=== PATIENT | male | born 1965 | race Two or more races ===

== ENCOUNTER 2017-08-06 14:52 | Observation (INO) | payer MEDICAID ==
[2017-08-06 14:56] VITALS: BMI 26.7
--- NOTE | 2017-08-06 15:41 | C.PDOC ---
History Of Present Illness 52-year-old male, presents to the emergency department with complaints of chest pain that started two hours ago. Patient states he developed pain while helping someone up at work. Pain is non radiating and persistent in nature. Denies nausea or diaphoresis. No prior Hx of similar. 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 Pain worsens with deep breaths and he also notes associated dyspnea on exertion. Denies fevers, chills, cough, nausea/vomiting. Time Seen by Provider: 08/06/17 15:15 Chief Complaint (Nursing): Chest Pain History Per: Patient History/Exam Limitations: no limitations Onset/Duration Of Symptoms: Days Current Symptoms Are (Timing): Still Present Past Medical History Reviewed: Historical Data, Nursing Documentation, Vital Signs Vital Signs: Last Vital Signs Temp 98.6 F 08/06/17 18:35 Pulse 85 08/06/17 18:35 Resp 14 08/06/17 18:35 BP 133/88 08/06/17 18:35 Pulse Ox 98 08/06/17 18:37 - Medical History PMH: Arthritis - [facility] Procedures APPLICATION OF SPLINT (02/25/02) INJECT/INFUSE NEC (10/25/06) Family History: States: No Known Family Hx - Social History Hx Alcohol Use: No Hx Substance Use: No - Immunization History Hx Tetanus Toxoid Vaccination: Yes Hx Influenza Vaccination: Yes Hx Pneumococcal Vaccination: No Review Of Systems Except As Marked, All Systems Reviewed And Found Negative. Constitutional: Negative for: Fever, Chills Cardiovascular: Negative for: Palpitations, Light Headedness Respiratory: Positive for: SOB with Excertion, Pleuritic Pain. Negative for: Shortness of Breath Gastrointestinal: Negative for: Nausea, Vomiting Musculoskeletal: Negative for: Arm Pain, Back Pain Skin: Negative for: Rash Neurological: Negative for: Weakness, Numbness, Headache, Dizziness Physical Exam - Physical Exam Appears: Non-toxic, No Acute Distress Skin: Normal Color, Warm, Dry, No Rash Head: Normacephalic Eye(s): bilateral: PERRL Nose: Normal Oral Mucosa: Moist Lips: Normal Appearing Neck: Normal ROM Chest: Symmetrical Cardiovascular: Rhythm Regular, No Murmur Respiratory: Normal Breath Sounds, No Decreased Breath Sounds, No Accessory Muscle Use Back: Normal Inspection Extremity: Normal ROM, No Deformity, No Swelling Neurological/Psych: Oriented x3, Normal Speech ED Course And Treatment - Laboratory Results Result Diagrams: 08/06/17 15:52 08/06/17 15:52 ECG: Interpreted By Me, Viewed By Me ECG Rhythm: Sinus Tachycardia ECG Interpretation: No Acute Changes Interpretation Of ECG: Non specific T wave changes. Normal intervals Rate From EC O2 Sat by Pulse Oximetry: 98 (RA) Pulse Ox Interpretation: Normal Medical Decision Making Medical Decision Making: Plan: * EKG * Bloodwork * Chest X-Ray * Aspirin * UA * Reassess and Disposition * * chest pain - discussed with pmd and will admit to tele obervation Disposition Discussed With Dr.: Oswaldo Schaefer Doctor Will See Patient In The: Hospital Counseled Patient/Family Regarding: Studies Performed, Diagnosis - Disposition Disposition: HOME/ ROUTINE Disposition Time: 16:56 Condition: FAIR - POA Core Measure Indicators: Chest Pain - Clinical Impression Clinical Impression: Chest pain - Scribe Statement The provider has reviewed the documentation as recorded by the Scribe (Jignesh Richard) All medical record entries made by the Scribe were at my direction and personally dictated by me. I have reviewed the chart and agree that the record accurately reflects my personal performance of the history, physical exam, medical decision making, and the department course for this patient. I have also personally directed, reviewed, and agree with the discharge instructions and disposition.
[2017-08-06 15:55] LABS: BASO # 0.1 K/uL (0.0-0.2); BASO % 1.4 % (0.0-2.0); EOS # 0.5 K/uL (0.0-0.7); EOS % 6.1 % (0.0-4.0); HEMOGLOBIN 11.9 g/dL (12.0-18.0); LYMPH # 2.3 K/uL (1.0-4.3); LYMPH % 30.8 % (20.0-40.0); MEAN CELL VOLUME 84.9 fL (80.0-94.0); MEAN CORPUSCULAR HEMOGLOBIN 27.9 pg (27.0-31.0); MEAN CORPUSCULAR HGB CONC 32.9 g/dL (33.0-37.0); MONO # 0.8 K/uL (0.0-0.8); MONO % 11.5 % (0.0-10.0); NEUT # 3.7 K/uL (1.8-7.0); NEUT % 50.2 % (50.0-75.0); RBC 4.27 Mil/uL (4.40-5.90); RED CELL DISTRIBUTION WIDTH 14.4 % (11.5-14.5); WHITE BLOOD COUNT 7.4 K/uL (4.8-10.8)
[2017-08-06 16:19] LABS: ALBUMIN 3.8 g/dL (3.5-5.0); ALT/SGPT 24 U/L (21-72); AST/SGOT 34 U/L (17-59); BLOOD UREA NITROGEN 8 mg/dL (9-20); CALCIUM 8.6 mg/dl (8.6-10.4); GFR AFRICAN-AMERICAN > 60; GFR NON-AFRICAN AMERICAN > 60
--- NOTE | 2017-08-06 16:22 | RAD ---
PROCEDURE: CHEST RADIOGRAPH, 1 VIEW HISTORY: chest pain COMPARISON: None available. FINDINGS: LUNGS: Clear. PLEURA: No pneumothorax or pleural fluid seen. CARDIOVASCULAR: Normal. OSSEOUS STRUCTURES: No significant abnormalities. VISUALIZED UPPER ABDOMEN: Normal. OTHER FINDINGS: None. IMPRESSION: No active disease.
[2017-08-06] MEDS: Enoxaparin 40 mg Syringe SC SCH (22:04)
[2017-08-07 02:39] LABS: CK-MB 2.96 ng/mL (0.0-3.38); TROPONIN I 0.021 ng/mL (0.00-0.120)
--- NOTE | 2017-08-07 07:33 | CP.PCM.PN ---
Subjective - Date & Time of Evaluation Date of Evaluation: 08/07/17 Time of Evaluation: 07:30 - Subjective Subjective: PGY-[address] Schaefer's service: Pt seen and examined at bedside. Nursing reports no acute events overnight. Patient reports "burning, acidic feeling" substernally that feels better since admission. He states the pain is made worse when "he touches the center of his chest." Patient admits recently started Eliquis last week for pulmonary embolism found on admission at [facility]. He admits occasional shortness of breath this AM, but denies abdominal pain, N/V, diaphoresis. 52-year-old black male, presented to the ED on 08/06/17, with complaints of chest pain that started two hours prior while he was helping someone up at work lift a heavy object. Pain is "substernal burning sensation" that is persistent in nature and worse with palpation of center chest. Denies nausea or diaphoresis. No prior Hx of similar. 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 Pain worsens with deep breaths and he also notes associated dyspnea on exertion. Denies fevers, chills, cough, nausea/vomiting. Fam hx: denies Social hx: Marijuana - 3 blunts per week; denies EtOH, tobacco use, other illicit drugs; Currently homeless - lived with mother but "they are currently fighting" Meds: Eliquis 5mg PO BID for Pulm Embolism found "last week at [facility]" Objective - Vital Signs/Intake and Output Vital Signs (last 24 hours): Temp Pulse Resp BP Pulse Ox 98.2 F 57 L 20 132/86 98 08/07/17 04:30 08/07/17 04:43 08/07/17 04:30 08/07/17 04:30 08/07/17 04:30 - Medications Medications: Current Medications Aspirin (Aspirin Chewable) 81 mg PO DAILY [facility] Clopidogrel Bisulfate (Plavix) 75 mg PO DAILY [facility] Last Admin: 08/06/17 22:04 Dose: 75 mg Enoxaparin Sodium (Lovenox) 40 mg SC DAILY [facility] Last Admin: 08/06/17 22:04 Dose: 40 mg - Labs Labs: 08/06/17 15:52 08/06/17 15:52 - Constitutional Appears: Non-toxic, No Acute Distress - Head Exam Head Exam: ATRAUMATIC, NORMAL INSPECTION - Eye Exam Eye Exam: EOMI, Normal appearance Pupil Exam: PERRL - Respiratory Exam Respiratory Exam: Chest Wall Tenderness (anterior chest at sternum), Clear to Ausculation Bilateral, NORMAL BREATHING PATTERN. absent: Rales, Rhonchi, Wheezes - Cardiovascular Exam Cardiovascular Exam: REGULAR RHYTHM, +S1, +S2 - GI/Abdominal Exam GI & Abdominal Exam: Soft, Normal Bowel Sounds. absent: Tenderness - Extremities Exam Extremities Exam: Normal Inspection. absent: Pedal Edema, Tenderness - Back Exam Back Exam: absent: CVA tenderness (L), CVA tenderness (R) - Neurological Exam Neurological Exam: Alert, Awake, Oriented x3 - Psychiatric Exam Psychiatric exam: Normal Affect, Normal Mood - Skin Skin Exam: Warm Assessment and Plan - Assessment and Plan (Free Text) Plan: Chest pain, Acute; R/o ACS Admit to telemetry Pt tender to palpation on anterior chest wall EKG (08/07/17): 102 BPM, Sinus Tachycardia, No acute ST/T wave changes Troponin negative x 3 CXR (08/07/17): NAD f/u ECHO Dr. Hopkins, mental hygiene consultant; help appreciated - f/u reccs ASA 81 mg PO Daily - ASA 325mg PO once in ED Plavix 75mg PO Daily Hx of Pulmonary Embolism Diagnosed last week, per patient, at admission at [facility] Pt reports persistent SOB Per Dr. Schaefer will repeat CT Angio today - f/u results Eliquis 5mg PO BID - patient denies missing any scheduled doses Prophylaxis Lovenox Eliquis 5mg PO BID SCDs Jim Lawrence PGY-[address] Schaefer
[2017-08-07] MEDS: Enoxaparin 40 mg Syringe SC SCH (09:46)
[2017-08-07 11:50] LABS: CK-MB 2.26 ng/mL (0.0-3.38)
--- NOTE | 2017-08-07 12:12 | CARD ---
APPROVED REPORT EKG Measurement Heart [id number] <Conclusion> Sinus tachycardia Otherwise normal ECG
--- NOTE | 2017-08-07 12:58 | CARD ---
APPROVED REPORT EXAM: Two-dimensional and M-mode echocardiogram with Doppler and color Doppler. Other Information Quality : GoodRhythm : INDICATION Chest Pain 2D DIMENSIONS IVSd1.1 (0.7-1.1cm)LVDd4.7 (3.9-5.9cm) PWd1.1 (0.7-1.1cm)LVDs3.1 (2.5-4.0cm) FS (%) 34.8 %LVEF (%)64.1 (>50%) M-Mode DIMENSIONS RVDd1.70 (2.1-3.2cm)Left Atrium (MM)3.44 (2.5-4.0cm) IVSd0.91 (0.7-1.1cm)Aortic Root3.69 (2.2-3.7cm) LVDd5.62 (4.0-5.6cm)Aortic Cusp Exc.2.44 (1.5-2.0cm) PWd0.97 (0.7-1.1cm)FS (%) 40 % LVDs3.37 (2.0-3.8cm)LVEF (%)70 (>50%) Mitral Valve MV E Nqthvbnu86.6cm/sMV A Jscizutn29.4cm/sE/A ratio1.2 TDI E/Lateral E'0.0E/Medial E'0.0 Tricuspid Valve TR Peak [id number]/sTR Peak Gr.[id number] LEFT VENTRICLE The left ventricle is normal size. There is normal left ventricular wall thickness. The left ventricular function is normal. The left ventricular ejection fraction is within the normal range. There is normal LV segmental wall motion. The left ventricular diastolic function is normal. No left ventricle thrombus noted on this study. There is no ventricular septal defect visualized. There is no left ventricular aneurysm. There is no mass noted in the left ventricle. RIGHT VENTRICLE The right ventricle is normal size. There is normal right ventricular wall thickness. The right ventricular systolic function is normal. ATRIA The left atrium size is normal. The right atrium size is normal. The interatrial septum is intact with no evidence for an atrial septal defect. AORTIC VALVE The aortic valve is normal in structure. No aortic regurgitation is present. There is no aortic valvular stenosis. There is no aortic valvular vegetation. MITRAL VALVE The mitral valve is normal in structure. There is no evidence of mitral valve prolapse. There is no mitral valve stenosis. There is no mitral valve regurgitation noted. TRICUSPID VALVE The tricuspid valve is normal in structure. There is no tricuspid valve regurgitation noted. PULMONIC VALVE The pulmonary valve is normal in structure. There is mild pulmonic valvular regurgitation. GREAT VESSELS The aortic root is normal in size. The ascending aorta is normal in size. The pulmonary artery is normal. The IVC is normal in size and collapses >50% with inspiration. PERICARDIAL EFFUSION There is no pericardial effusion. There is no pleural effusion. <Conclusion> NORMAL STUDY. LVEF IS 70%. NO WALL MOTION ABNORMALITY. MILD PULMONIC REGURGITATION.
[2017-08-07] MEDS ORDERED: Iodixanol 320 MG/ML 100 ML BOTTLE IV ONE (13:24)
--- NOTE | 2017-08-07 14:52 | CT ---
PROCEDURE: CT Chest with contrast (Pulmonary Angiogram) HISTORY: sudden sob; Hx of PE COMPARISON: None available. TECHNIQUE: Axial computed tomography images were obtained of the chest in the pulmonary arterial phase of enhancement. Coronal and sagittal reformatted images were created and reviewed. Intravenous contrast dose: 100 mL Visipaque 320 Radiation dose: Total exam DLP = 392.4 mGy-cm. This CT exam was performed using one or more of the following dose reduction techniques: Automated exposure control, adjustment of the mA and/or kV according to patient size, and/or use of iterative reconstruction technique. FINDINGS: PULMONARY ARTERIES: Segmental right lower lobe and subsegmental left upper lobe pulmonary emboli. AORTA: No acute findings. No thoracic aortic aneurysm. LUNGS: Unremarkable. No nodule, mass or pulmonary consolidation. PLEURAL SPACES: Unremarkable. No effusion or pneumothorax. HEART: Unremarkable. No cardiomegaly. No significant pericardial effusion. LYMPH NODES: No lymphadenopathy. 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 No fracture or destructive lesion OTHER FINDINGS: Unremarkable. IMPRESSION: Bilateral pulmonary emboli as described above. No CT evidence of right heart strain. Findings conveyed to LUPIS Berkowitz by Dr. Donahue at 2:49 pm on
--- NOTE | 2017-08-07 15:52 | CARD ---
APPROVED REPORT EKG Measurement Heart [id number] <Conclusion> Normal sinus rhythm Left axis deviation Abnormal ECG
--- NOTE | 2017-08-07 18:26 | CP.PCM.CON ---
History of Present Illness - History of Present Illness History of Present Illness: I was asked to evaluate patient for chest pain. Patient is a 52 year old male with PMH HTN, who was diagnosed with pulmonary embolism one week ago. The patient was started on Eliquis and discharged. The patient states he develoepd L sided chest and side pain which then radiated to the center. There was associated dyspnea. Review of Systems - Constitutional Constitutional: absent: As Per HPI, Anorexia, Chills, Daytime Sleepiness, Excessive Sweating, Fatigue, Fever, Frequent Falls, Headache, Increased Appetite , Lethargy, Malaise, Night Sweats, Snoring, Sleep Apnea, Weight Gain, Weight Loss, Weakness, Other - EENT Eyes: absent: As Per HPI, Blind Spots, Blurred Vision, Change in Vision, Decreased Night Vision, Diplopia, Discharge, Dry Eye, Exophthalmos, Floaters, Irritation, Itchy Eyes, Loss of Peripheral Vision, Pain, Photophobia, Requires Corrective Lenses, Sees Flashes, Spots in Vision, Tunnel Vision, Other Visual Disturbances, Loss of Vision, Other Nose/Mouth/Throat: absent: As Per HPI, Epistaxis, Nasal Congestion, Nasal Discharge, Nasal Obstruction, Nasal Trauma, Nose Pain, Post Nasal Drip, Sinus Pain, Sinus Pressure, Bleeding Gums, Change in Voice, Dental Pain, Dry Mouth, Dysphagia, Halitosis, Hoarsness, Lip Swelling, Mouth Lesions, Mouth Pain, Odynophagia, Sore Throat, Throat Swelling, Tongue Swelling, Facial Pain, Neck Pain, Neck Mass, Other - Cardiovascular Cardiovascular: Chest Pain - Respiratory Respiratory: Dyspnea - Gastrointestinal Gastrointestinal: absent: As Per HPI, Abdominal Pain, Belching, Bloating, Change in Bowel Habits, Change in Stool Character, Coffee Ground Emesis, Constipation, Cramping, Diarrhea, Dyspepsia, Dysphagia, Early Satiety, Excessive Flatus, Fecal Incontinence, Heartburn, Hematemesis, Hematochezia, Loose Stools, Melena, Nausea, Odynophagia, Temesmus, Vomiting, Other - Genitourinary Genitourinary: absent: As Per HPI, Change in Urinary Stream, Difficulty Urinating, Dysuria, Flank Pain, Hematuria, Pyuria, Nocturia, Urinary Incontinence, Urinary Frequency, Urinary Hesitance, Urinary Urgency, Voiding Freq/Small Amts, Freq UTI, Hx Renal/Bladder Calculi, Hx /Renal Surgery, Bladder Distension, Other - Musculoskeletal Musculoskeletal: absent: As Per HPI, Abnormal Gait, Arthralgias, Atrophy, Back Pain, Deformity, Joint Swelling, Limited Range of Motion, Loss of Height, Muscle Cramps, Muscle Weakness, Myalgias, Neck Pain, Numbness, Radiating Pain into Limb, Stiffness, Tingling, Other - Integumentary Integumentary: absent: As Per HPI, Acne, Alopecia, Bleeding Lesions, Change in Hair, Change in Nails, Change in Pigmentation, Changing Lesions, Dry Skin, Erythema, Furuncle, Hirsutism, Lesions, New Lesions, Non-Healing Lesions, Photosensitivity, Pruritus, Rash, Skin Pain, Skin Ulcer, Sores, Striae, Swelling , Unusual Bruising, Wounds, Jaundice, Other - Neurological Neurological: absent: As Per HPI, Abnormal Gait, Abnormal Hearing, Abnormal Movements, Abnormal Speech, Behavioral Changes, Burning Sensations, Confusion, Convulsions, Disequilibrium, Dizziness, Numbness, Focal Weakness, Frequent Falls , Headaches, Lack of Coordination, Loss of Vision, Memory Loss, Paresthesias, Radicular Pain, Restless Legs, Sensory Deficit, Syncope, Tingling, Tremor, Vertigo, Weakness, Other Visual Disturbances, Other - Psychiatric Psychiatric: absent: As Per HPI, Abnormal Sleep Pattern, Anhedonia, Anxiety, Auditory Hallucinations, Behavioral Changes, Change in Appetite, Change in Libido, Confusion, Depression, Difficulty Concentrating, Hallucinations, Homicidal Ideation, Hopelessness, Irritability, Memory Loss, Mood Swings, Panic Attacks, Paranoia, Suicidal Ideation, Visual Hallucinations, Tactile Hallucinations, Other - Endocrine Endocrine: absent: As Per HPI, Change in Body Appearance, Change in Libido, Cold Intolorance, Deepening of Voice, Excessive Sweating, Fatigue, Flushing, Heat Intolorance, Increase in Ring/Shoe/Hat Size, Palpitations, Polydipsia, Polyphagia, Polyuria, Other - Hematologic/Lymphatic Hematologic: absent: As Per HPI, Easy Bleeding, Easy Bruising, Lymphadenopathy, Other Past Patient History - Past Social History Smoking Status: Never Smoked - MUSCULOSKELETAL/RHEUMATOLOGICAL Hx Arthritis: Yes - PSYCHIATRIC Hx Substance Use: No - SURGICAL HISTORY Hx Surgeries: Yes Other/Comment: abdominal - ANESTHESIA Hx Anesthesia: Yes Hx Anesthesia Reactions: No Hx Malignant Hyperthermia: No Meds Allergies/Adverse Reactions: Allergies Allergy/AdvReac Type Severity Reaction Status Date / Time Penicillins Allergy Severe ANAPHYLAXIS Verified 08/06/17 14:55 - Medications Medications: Current Medications Apixaban (Eliquis) 5 mg PO BID [facility] Last Admin: 08/07/17 17:53 Dose: 5 mg Aspirin (Aspirin Chewable) 81 mg PO DAILY [facility] Last Admin: 08/07/17 09:47 Dose: 81 mg Clopidogrel Bisulfate (Plavix) 75 mg PO DAILY [facility] Last Admin: 08/07/17 09:47 Dose: 75 mg Physical Exam - Constitutional Appears: Non-toxic - Head Exam Head Exam: NORMAL INSPECTION - Eye Exam Eye Exam: Normal appearance - ENT Exam ENT Exam: Mucous Membranes Moist - Neck Exam Neck exam: Positive for: Full Rom - Respiratory Exam Respiratory Exam: NORMAL BREATHING PATTERN - Cardiovascular Exam Cardiovascular Exam: REGULAR RHYTHM - GI/Abdominal Exam GI & Abdominal Exam: Normal Bowel Sounds - Rectal Exam Rectal Exam: Deferred - Extremities Exam Extremities exam: Positive for: normal inspection - Back Exam Back exam: NORMAL INSPECTION - Neurological Exam Neurological exam: Alert, Oriented x3 - Psychiatric Exam Psychiatric exam: Normal Affect - Skin Skin Exam: Normal Color, Warm Results - Vital Signs Recent Vital Signs: Last Vital Signs Temp 98.5 F 08/07/17 15:42 Pulse 79 08/07/17 15:42 Resp 18 08/07/17 15:42 BP 144/88 08/07/17 15:42 Pulse Ox 97 08/07/17 15:42 - Labs Result Diagrams: 08/08/17 06:14 08/08/17 06:14 Labs: Laboratory Results - last 24 hr 08/07/17 08/07/17 02:09 11:11 Total Creatine Kinase 202 H 213 H CK-MB (Mass) 2.96 2.26 Troponin I 0.0210 < 0.0120 - EKG Data EKG Interpreted by: Myself EKG shows normal: Sinus rhythm Assessment & Plan (1) Pulmonary embolism Assessment and Plan: patient's symptoms are likley due to pulmonary embolism. He is otherwise hemodynamically stable. continue Eliquis. Status: Acute
--- NOTE | 2017-08-07 18:26 | CP.PCM.CON ---
History of Present Illness - History of Present Illness History of Present Illness: patient seen examined. full cosult to follow. agree with Eliquis for PE. Past Patient History - Past Social History Smoking Status: Never Smoked - MUSCULOSKELETAL/RHEUMATOLOGICAL Hx Arthritis: Yes - PSYCHIATRIC Hx Substance Use: No - SURGICAL HISTORY Hx Surgeries: Yes Other/Comment: abdominal - ANESTHESIA Hx Anesthesia: Yes Hx Anesthesia Reactions: No Hx Malignant Hyperthermia: No Meds Allergies/Adverse Reactions: Allergies Allergy/AdvReac Type Severity Reaction Status Date / Time Penicillins Allergy Severe ANAPHYLAXIS Verified 08/06/17 14:55 - Medications Medications: Current Medications Apixaban (Eliquis) 5 mg PO BID [facility] Last Admin: 08/07/17 17:53 Dose: 5 mg Aspirin (Aspirin Chewable) 81 mg PO DAILY [facility] Last Admin: 08/07/17 09:47 Dose: 81 mg Clopidogrel Bisulfate (Plavix) 75 mg PO DAILY [facility] Last Admin: 08/07/17 09:47 Dose: 75 mg Results - Vital Signs Recent Vital Signs: Last Vital Signs Temp 98.5 F 08/07/17 15:42 Pulse 79 08/07/17 15:42 Resp 18 08/07/17 15:42 BP 144/88 08/07/17 15:42 Pulse Ox 97 08/07/17 15:42 - Labs Result Diagrams: 08/06/17 15:52 08/06/17 15:52 Labs: Laboratory Results - last 24 hr 08/07/17 08/07/17 02:09 11:11 Total Creatine Kinase 202 H 213 H CK-MB (Mass) 2.96 2.26 Troponin I 0.0210 < 0.0120
[2017-08-08 00:56] VITALS: RESP 20
[2017-08-08 06:23] LABS: BASO # 0.2 K/uL (0.0-0.2); BASO % 2.8 % (0.0-2.0); EOS # 0.7 K/uL (0.0-0.7); EOS % 7.6 % (0.0-4.0); HEMOGLOBIN 13.2 g/dL (12.0-18.0); LYMPH # 2.6 K/uL (1.0-4.3); LYMPH % 28.7 % (20.0-40.0); MEAN CELL VOLUME 85.9 fL (80.0-94.0); MEAN CORPUSCULAR HEMOGLOBIN 28.2 pg (27.0-31.0); MEAN CORPUSCULAR HGB CONC 32.9 g/dL (33.0-37.0); MEAN PLATELET VOLUME 8.3 fL (7.2-11.7); MONO # 0.9 K/uL (0.0-0.8); MONO % 10.5 % (0.0-10.0); NEUT # 4.5 K/uL (1.8-7.0); NEUT % 50.4 % (50.0-75.0); NRBC % 0.1 % (0.0-2.0); RBC 4.68 Mil/uL (4.40-5.90); RED CELL DISTRIBUTION WIDTH 14.5 % (11.5-14.5); WHITE BLOOD COUNT 8.9 K/uL (4.8-10.8)
[2017-08-08 06:45] LABS: ALB/GLOB RATIO 1.1 (1.0-2.1); ALBUMIN 3.6 g/dL (3.5-5.0); BLOOD UREA NITROGEN 8 mg/dL (9-20); CALCIUM 8.8 mg/dl (8.6-10.4); GFR AFRICAN-AMERICAN > 60; GFR NON-AFRICAN AMERICAN > 60
[2017-08-08 06:47] LABS: ALT/SGPT 26 U/L (21-72); AST/SGOT 33 U/L (17-59)
[2017-08-08 08:07] VITALS: BP 132/87; PULSE 62; TEMP 98.7; O2SAT 99
[2017-08-08] MEDS ORDERED: guaiFENesin DM 200 mg-20 mg/10 ml UD PO PRN (11:00)
--- NOTE | 2017-08-08 14:44 | CP.PCM.PN ---
Subjective - Date & Time of Evaluation Date of Evaluation: 08/08/17 Time of Evaluation: 09:50 - Subjective Subjective: Medicine progress note for Dr. Schaefer's service Patient seen and examined. Patient has complaint of burning sensation with reproducible pain on sternum. He states he also has a non-productive cough. Patient was treated at [facility] last week for bilateral pulmonary emboli. Patient has medications with him from his [facility] discharge including Eliquis 5mg, atorvastatin 40mg, thiamine and folic acid. Patient is eating well and is to be evaluated by physical therapy today. Objective - Vital Signs/Intake and Output Vital Signs (last 24 hours): Temp Pulse Resp BP Pulse Ox 98.7 F 62 20 132/87 99 08/08/17 08:06 08/08/17 08:06 08/08/17 08:06 08/08/17 08:06 08/08/17 08:06 - Medications Medications: Current Medications Apixaban (Eliquis) 5 mg PO BID [facility] Last Admin: 08/08/17 09:11 Dose: 5 mg Aspirin (Aspirin Chewable) 81 mg PO DAILY [facility] Last Admin: 08/08/17 09:11 Dose: 81 mg Famotidine (Pepcid) 20 mg PO BID [facility] Guaifenesin/Dextromethorphan (Robitussin Dm) 10 ml PO Q4H PRN PRN Reason: Cough and congestion Last Admin: 08/08/17 10:46 Dose: 10 ml Rosuvastatin Calcium (Crestor) 20 mg PO HS [facility] - Labs Labs: 08/08/17 06:14 08/08/17 06:14 - Constitutional Appears: No Acute Distress - Head Exam Head Exam: ATRAUMATIC, NORMOCEPHALIC - Eye Exam Eye Exam: EOMI - ENT Exam ENT Exam: Mucous Membranes Moist - Respiratory Exam Respiratory Exam: Chest Wall Tenderness (sternum), Clear to Ausculation Bilateral, NORMAL BREATHING PATTERN. absent: Rales, Rhonchi, Wheezes - Cardiovascular Exam Cardiovascular Exam: REGULAR RHYTHM, +S1, +S2 - GI/Abdominal Exam GI & Abdominal Exam: Soft, Normal Bowel Sounds. absent: Tenderness - Extremities Exam Extremities Exam: Normal Inspection. absent: Calf Tenderness - Neurological Exam Neurological Exam: Alert, Awake, Oriented x3 - Psychiatric Exam Psychiatric exam: Normal Affect - Skin Skin Exam: Warm Assessment and Plan - Assessment and Plan (Free Text) Assessment: Chest pain, Acute; R/o ACS Monitor on telemetry Pt tender to palpation on anterior chest wall EKG (08/07/17): 102 BPM, Sinus Tachycardia, No acute ST/T wave changes Troponin negative x 3 CXR (08/07/17): NAD ECHO: Normal study. LVEF 70%. No wall motion abnormality. Mild Pulmonic Regurgitation. Dr. Hopkins, business analyst consultant; help appreciated - agree with Eliquis 5mg PO BID ASA 81 mg PO Daily stopped Plavix, restart equivalent of home med Atorvastatin Hx of Pulmonary Embolism Diagnosed last week, per patient, at admission at [facility] Pt reports persistent SOB repeat CT Angio: Bilateral Pulm Emboli. No evidence of right heart strain. continue Eliquis 5mg PO BID - patient denies missing any scheduled doses Prophylaxis Lovenox Eliquis 5mg PO BID [facility] All medical management as per Dr. Schaefer Patient is stable for discharge home per Dr. Schaefer. Patient is to resume Eliquis 5mg by mouth twice a day. Patient is to resume his vitamins as well as his Atorvastatin. Patient is to follow up with Dr. Schaefer within one week of discharge. Patient is to return to the ED if his symptoms reoccur or worsen. This was explained to the patient who understands and agrees.
--- NOTE | 2017-08-08 16:31 | CARD ---
APPROVED REPORT EKG Measurement Heart [id number] <Conclusion> Unusual P axis, possible ectopic atrial rhythm Possible Lateral infarct, age undetermined Abnormal ECG
== END 2017-08-08 16:11 | disposition home or self-care (01) ==
LOC: C.ER 14:52 → C.9E 16:56 → C.6T 18:33
PROVIDERS: ADMIT Internal Medicine Pulmonary Disease; ATTEND Internal Medicine Pulmonary Disease
DX: R07.89 Other chest pain (principal); I10 Essential (primary) hypertension; I26.99 Other pulmonary embolism without acute cor pulmonale; I37.1 Nonrheumatic pulmonary valve insufficiency; Z79.01 Long term (current) use of anticoagulants; Z86.711 Personal history of pulmonary embolism
CPT/HCPCS: 36415; 71045; 71275; 80053; 83735; 84100; 84484; 85025; 93005; 93306; 97116; 97161; 99285; G0378; G8978; G8979; J1650; Q9967

== ENCOUNTER 2018-08-15 03:52 | Inpatient (IN) | payer MEDICAID ==
[2018-08-15 03:53] VITALS: BMI 26.7
[2018-08-15] MEDS ORDERED: Iodixanol 320 mg/ml 150 ml Bottle IV ONE (04:40)
[2018-08-15 04:48] LABS: BASO # 0.1 K/uL (0.0-0.2); BASO % 0.3 % (0.0-2.0); EOS # 0.1 K/uL (0.0-0.7); EOS % 0.8 % (0.0-4.0); HEMOGLOBIN 12.7 g/dL (12.0-18.0); LYMPH # 1.8 K/uL (1.0-4.3); LYMPH % 10.5 % (20.0-40.0); MEAN CELL VOLUME 83.3 fL (80.0-94.0); MEAN CORPUSCULAR HEMOGLOBIN 27.8 pg (27.0-31.0); MEAN CORPUSCULAR HGB CONC 33.4 g/dL (33.0-37.0); MEAN PLATELET VOLUME 8.7 fL (7.2-11.7); MONO # 1.8 K/uL (0.0-0.8); MONO % 10.5 % (0.0-10.0); NEUT # 13.3 K/uL (1.8-7.0); NEUT % 77.9 % (50.0-75.0); RBC 4.55 Mil/uL (4.40-5.90); RED CELL DISTRIBUTION WIDTH 13.9 % (11.5-14.5); WHITE BLOOD COUNT 17.1 K/uL (4.8-10.8)
[2018-08-15 05:18] LABS: URINE BILIRUBIN NEGATIVE (NEGATIVE); URINE BLOOD NEGATIVE (NEGATIVE); URINE CLARITY Clear (Clear); URINE COLOR Yellow (YELLOW); URINE GLUCOSE (UA) NORMAL (Normal); URINE LEUKOCYTE ESTERASE NEG Leu/uL (Negative); URINE PROTEIN 1+ mg/dL (NEGATIVE); URINE UROBILINOGEN NORMAL mg/dL (0.2-1.0)
[2018-08-15 05:25] LABS: ALB/GLOB RATIO 1.4 (1.0-2.1); ALBUMIN 4.8 g/dL (3.5-5.0); ALT/SGPT 26 U/L (21-72); AST/SGOT 40 U/L (17-59); BLOOD UREA NITROGEN 16 mg/dL (9-20); CALCIUM 9.5 mg/dl (8.6-10.4); GFR NON-AFRICAN AMERICAN > 60; LIPASE 75 U/L (23-300)
--- NOTE | 2018-08-15 06:00 | C.PDOC ---
History Of Present Illness 53 year old male presents to the ED c/o RLQ abdominal pain associated with watery diarrhea that started at 22:30. Patient reports pain is constant, non radiating. Patient denies fever, chills, nausea, vomit, dysuria, back pain, previous history of similar symptoms. Time Seen by Provider: 08/15/18 04:07 Chief Complaint (Nursing): Abdominal Pain History Per: Patient History/Exam Limitations: no limitations Onset/Duration Of Symptoms: Hrs (22:30) Current Symptoms Are (Timing): Still Present Location Of Pain/Discomfort: Diffuse, RLQ Quality Of Discomfort: "Pain" Associated Symptoms: Diarrhea. denies: Fever, Nausea, Vomiting, Loss Of Appetite, Constipation Recent travel outside of the [place]: No Additional History Per: Patient Past Medical History Reviewed: Historical Data, Nursing Documentation, Vital Signs Vital Signs: Last Vital Signs Temp 99.4 F 08/15/18 03:59 Pulse 92 H 08/15/18 03:59 Resp 20 08/15/18 03:59 BP 120/79 08/15/18 03:59 Pulse Ox 97 08/15/18 03:59 - Medical History PMH: Arthritis Surgical History: No Surg Hx - [facility] Procedures APPLICATION OF SPLINT (02/25/02) INJECT/INFUSE NEC (10/25/06) Family History: States: Unknown Family Hx - Social History Hx Alcohol Use: Yes Hx Substance Use: Yes - Immunization History Hx Tetanus Toxoid Vaccination: Yes Hx Influenza Vaccination: Yes Hx Pneumococcal Vaccination: No Review Of Systems Constitutional: Negative for: Fever, Chills Cardiovascular: Negative for: Chest Pain Respiratory: Negative for: Shortness of Breath Gastrointestinal: Positive for: Abdominal Pain, Diarrhea. Negative for: Nausea, Vomiting Genitourinary: Negative for: Dysuria, Hematuria Skin: Negative for: Rash Neurological: Negative for: Weakness, Numbness Physical Exam - Physical Exam Appears: Non-toxic, No Acute Distress Skin: Normal Color, Warm, Dry Head: Atraumatic, Normacephalic Eye(s): bilateral: Normal Inspection Oral Mucosa: Moist Neck: Normal ROM, Supple Chest: Symmetrical Cardiovascular: Rhythm Regular Respiratory: Normal Breath Sounds, No Rales, No Rhonchi, No Wheezing Gastrointestinal/Abdominal: Soft, Tenderness (diffuse, greater on RLQ), Guarding (mild), No Rebound, Other (epigastric surgical scar) Back: No CVA Tenderness Extremity: Normal ROM, No Tenderness, No Swelling Neurological/Psych: Oriented x3, Normal Speech, Normal Cognition Gait: Steady ED Course And Treatment - Laboratory Results Result Diagrams: 08/15/18 04:38 08/15/18 04:38 Lab Results: Total Bilirubin 0.6 mg/dL (0.2-1.3) 08/15/18 04:38 AST 40 U/L (17-59) 08/15/18 04:38 ALT 26 U/L (21-72) 08/15/18 04:38 Alkaline Phosphatase 85 U/L (38-126) 08/15/18 04:38 Total Protein 8.3 g/dL (6.3-8.3) 08/15/18 04:38 Albumin 4.8 g/dL (3.5-5.0) 08/15/18 04:38 Globulin 3.5 gm/dL (2.2-3.9) 08/15/18 04:38 Albumin/Globulin Ratio 1.4 (1.0-2.1) 08/15/18 04:38 Lipase 75 U/L (23-300) 08/15/18 04:38 Urine Color Yellow (YELLOW) 08/15/18 05:11 Urine Clarity Clear (Clear) 08/15/18 05:11 Urine pH 8.0 (5.0-8.0) 08/15/18 05:11 Ur Specific [place] 1.016 (1.003-1.030) 08/15/18 05:11 Urine Protein 1+ mg/dL (NEGATIVE) H 08/15/18 05:11 Urine Glucose (UA) Normal mg/dL (Normal) 08/15/18 05:11 Urine Ketones Negative mg/dL (NEGATIVE) 08/15/18 05:11 Urine Blood Negative (NEGATIVE) 08/15/18 05:11 Urine Nitrate Negative (NEGATIVE) 08/15/18 05:11 Urine Bilirubin Negative (NEGATIVE) 08/15/18 05:11 Urine Urobilinogen Normal mg/dL (0.2-1.0) 08/15/18 05:11 Ur Leukocyte Esterase Neg Christiana/uL (Negative) 08/15/18 05:11 Urine WBC (Auto) < 1 /hpf (0-5) 08/15/18 05:11 Urine RBC (Auto) 1 /hpf (0-3) 08/15/18 05:11 ECG: Interpreted By Me, Viewed By Me (NSR 91 bpm, left axis deviation, QTc 519ms, no acute ST/T wave changes) ECG Interpretation: No Acute Changes O2 Sat by Pulse Oximetry: 97 (On RA) Pulse Ox Interpretation: Normal - CT Scan/US CT abd/pelvis Other Rad Studies (CT/US): Read By Radiologist, Radiology Report Reviewed CT/US Interpretation: CT SCAN OF THE ABDOMEN AND PELVIS WITH CONTRAST. CLINICAL HISTORY: PATIENT WITH PAIN LAST NIGHT 10PM RLQ ELEV WBC 17.1 (Hx). TECHNIQUE: Multiple axial and coronal CT images were obtained through the abdomen and pelvis after administration of intravenous contrast material. COMMENTS: Enl arged appendix measuring 1.6 cm in its largest transverse dimension. Mild enhancement of the appendix with surrounding fat stranding. Fluid-filled small bowels. Fluid-filled colon. The liver is of uniform attenuation without mass or defect. There is no intra or extrahepatic biliary ductal dilatation. The spleen is normal. The gallbladder is within normal limits. The pancreas is of normal contour and attenuation characteristics. There is no evidence of adrenal mass. Both kidneys demonstrate prompt and equal nephrograms. The kidneys are normal in size, shape and configuration. There is no evidence of renal or ureteral mass. No renal or ureteral calculi are identified. There is no hydroure ter or hydronephrosis. There is no bowel wall thickening. No evidence for small or large bowel obstruction. There is no evidence of abdominal ascites or lymphadenopathy. There is no evidence of intrinsic or extrinsic bladder mass. There is no pelvic ascites or lymphadenopathy. Images of the lung bases show no evidence of pleural or parenchymal mass. There are no pleural effusions. The bony structures are free of lytic or blastic lesions. IMPRESSION: Uncomplicated acute appendicitis without perforation or abscess formation. Reactive ileus. Thank you for your kind referral of this patient. . Electronically signed on Aug 15, 2018 6:23:01 AM EDT by: Riri Rutledge M.D., Certified by ABR, MSK, Neuroradiology Progress Note: Blood work, UA, CT scan abd/pelvis ordered and reviewed. IV KCL given for hypokalemia. IV toradol given for pain. 6:20am- CT scan shows uncomplicated acute appendicits. Discussed patient with gen surgery resident, will come and eval patient. IV Cipro and IV Flagyl ordered. Disposition - Disposition Forms: [facility] (Khmer) - Scribe Statement The provider has reviewed the documentation as recorded by the Scribe Cecilio Goldstein All medical record entries made by the Scribe were at my direction and personally dictated by me. I have reviewed the chart and agree that the record accurately reflects my personal performance of the history, physical exam, medical decision making, and the department course for this patient. I have also personally directed, reviewed, and agree with the discharge instructions and disposition.
[2018-08-15] MEDS ORDERED: Potassium Chloride 20 mEq 100 ML ONE (06:11)
[2018-08-15] MEDS ORDERED: Ciprofloxacin 400mg/200ml D5W 400 MG/200 ML BAG IV STA (06:26)
[2018-08-15] MEDS ORDERED: metroNIDAZOLE IV 500 mg/100 ml 500 MG/100 ML BAG IV STA (06:26)
[2018-08-15] MEDS ORDERED: metroNIDAZOLE IV 500 mg/100 ml 500 MG/100 ML BAG ONE (06:43)
--- NOTE | 2018-08-15 06:56 | CP.PCM.CON ---
History of Present Illness - History of Present Illness History of Present Illness: SURGERY NOTE FOR DR. CARTAGENA 53M presents with abdominal pain, that started last night. He states he has never had this kind of pain before. Pain is in the RLQ, denies nausea or vomiting, denies fevers or chills. Patient last PO intake was last evening. Patient on Eliquis for an unknown reason and last took it yesterday morning. PMH: HTN, ETOH abuse, On eliquis for unknown reason PSH: Ex-lap for unknown reason (perforation of unknown organ) Social: denies tobacco abuse, admits to alcohol abuse (drinks every day) and marijuana abuse, denies cocaine and heroin Allergies: penicillins Past Patient History - Past Social History Smoking Status: Never Smoked - MUSCULOSKELETAL/RHEUMATOLOGICAL Hx Arthritis: Yes - PSYCHIATRIC Hx Substance Use: Yes - SURGICAL HISTORY Hx Surgeries: Yes Other/Comment: abdominal - ANESTHESIA Hx Anesthesia: Yes Hx Anesthesia Reactions: No Hx Malignant Hyperthermia: No Meds Allergies/Adverse Reactions: Allergies Allergy/AdvReac Type Severity Reaction Status Date / Time Penicillins Allergy Severe ANAPHYLAXIS Verified 08/15/18 04:00 - Medications Medications: Current Medications Potassium Chloride (Potassium Chloride 20 Meq/100 Ml) 20 meq in 100 mls @ 50 mls/hr IVPB ONCE ONE Stop: 08/15/18 07:30 Last Admin: 08/15/18 06:19 Dose: 50 mls/hr Potassium Chloride (Potassium Chloride 20 Meq/100 Ml) 20 meq in 100 mls @ 50 mls/hr IVPB ONCE ONE Stop: 08/15/18 07:30 Ciprofloxacin (Cipro 400mg/200ml Dsw) 400 mg in 200 mls @ 133.333 mls/hr IV STAT STA; Protocol Stop: 08/15/18 07:55 Metronidazole (Flagyl) 500 mg in 100 mls @ 100 mls/hr IV STAT STA; Protocol Stop: 08/15/18 07:25 Potassium Chloride 40 meq/ (Sodium Chloride) 1,020 mls @ 100 mls/hr IV .[id number] LE[facility] Physical Exam - Constitutional Appears: Non-toxic, No Acute Distress - Head Exam Head Exam: ATRAUMATIC - ENT Exam ENT Exam: Mucous Membranes Moist - Respiratory Exam Respiratory Exam: Clear to Auscultation Bilateral, NORMAL BREATHING PATTERN - Cardiovascular Exam Cardiovascular Exam: REGULAR RHYTHM, +S1, +S2 - GI/Abdominal Exam GI & Abdominal Exam: Guarding, Soft, Tenderness (RLQ). absent: Distended, Firm, Rebound, Rigid - Extremities Exam Extremities exam: Negative for: pedal edema, tenderness - Neurological Exam Neurological exam: Alert, Oriented x3 - Psychiatric Exam Psychiatric exam: Normal Affect, Normal Mood - Skin Skin Exam: Dry, Intact, Normal Color, Warm Results - Vital Signs Recent Vital Signs: Last Vital Signs Temp 99.4 F 08/15/18 03:59 Pulse 90 08/15/18 06:21 Resp 16 08/15/18 06:21 BP 121/83 08/15/18 06:21 Pulse Ox 97 08/15/18 06:50 - Labs Result Diagrams: 08/15/18 04:38 08/15/18 04:38 Labs: Laboratory Results - last 24 hr 08/15/18 08/15/18 08/15/18 04:38 04:38 05:11 WBC 17.1 H D RBC 4.55 Hgb 12.7 Hct 37.9 MCV 83.3 D MCH 27.8 MCHC 33.4 RDW 13.9 Plt Count 240 MPV 8.7 Neut % (Auto) 77.9 H Lymph % (Auto) 10.5 L Pierce % (Auto) 10.5 H Eos % (Auto) 0.8 Baso % (Auto) 0.3 Neut # (Auto) 13.3 H Lymph # (Auto) 1.8 Pierce # (Auto) 1.8 H Eos # (Auto) 0.1 Baso # (Auto) 0.1 Sodium 132 Potassium 2.5 L* D Chloride 85 L Carbon Dioxide 39 H Anion Gap 11 BUN 16 Creatinine 0.9 Est GFR ( Amer) > 60 Est GFR (Non-Af Amer) > 60 Random Glucose 116 H D Calcium 9.5 Total Bilirubin 0.6 AST 40 ALT 26 Alkaline Phosphatase 85 Total Protein 8.3 Albumin 4.8 Globulin 3.5 Albumin/Globulin Ratio 1.4 Lipase 75 Urine Color Yellow Urine Clarity Clear Urine pH 8.0 Ur Specific [place] 1.016 Urine Protein 1+ H Urine Glucose (UA) Normal Urine Ketones Negative Urine Blood Negative Urine Nitrate Negative Urine Bilirubin Negative Urine Urobilinogen Normal Ur Leukocyte Esterase Neg Urine WBC (Auto) < 1 Urine RBC (Auto) 1 Assessment & Plan - Assessment and Plan (Free Text) Assessment: 53M presents with acute appendicitis Plan: NPO IVF Potassium replacements Hold blood thinners Pre-op labs Antibiotics Plan for OR today Discussed with Dr. Darrell Lares, PGY3
[2018-08-15 07:17] LABS: INR 1.2; PROTHROMBIN TIME 13.4 SECONDS (9.7-12.2)
--- NOTE | 2018-08-15 07:21 | CP.PCM.PN ---
Subjective - Date & Time of Evaluation Date of Evaluation: 08/15/18 Time of Evaluation: 07:27 - Subjective Subjective: Medicine Note for Dr. 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 Patient reports the pain is sharp, crampy, localized to the left lower part of his abdomen associated with diarrhea. This has never happened to him before. Denied any fever, chills, chest pain, shortness of breath, nausea, vomiting, or constipation. PMHx: As noted above PSHx: Ex-lap for unknown reason (perforation of unknown organ) Meds: ASA, Eliquis, BP meds will confirm meds with [facility] [phone] All: PCNs SHx: Admits to daily alcohol use (3-4 beers per day since high school), admits to marijuana use, and denied any tobacco use FHx: Unremarkable PMD: Dr. Jeevan Schaefer Objective - Vital Signs/Intake and Output Vital Signs (last 24 hours): Temp Pulse Resp BP Pulse Ox 99.4 F 90 16 121/83 97 08/15/18 03:59 08/15/18 06:21 08/15/18 06:21 08/15/18 06:21 08/15/18 06:50 - Medications Medications: Current Medications Potassium Chloride (Potassium Chloride 20 Meq/100 Ml) 20 meq in 100 mls @ 50 mls/hr IVPB ONCE ONE Stop: 08/15/18 07:30 Last Admin: 08/15/18 06:19 Dose: 50 mls/hr Potassium Chloride (Potassium Chloride 20 Meq/100 Ml) 20 meq in 100 mls @ 50 mls/hr IVPB ONCE ONE Stop: 08/15/18 07:30 Ciprofloxacin (Cipro 400mg/200ml Dsw) 400 mg in 200 mls @ 133.333 mls/hr IV STAT STA; Protocol Stop: 08/15/18 07:55 Metronidazole (Flagyl) 500 mg in 100 mls @ 100 mls/hr IV STAT STA; Protocol Stop: 08/15/18 07:25 Last Admin: 08/15/18 06:51 Dose: 100 mls/hr Potassium Chloride 40 meq/ (Sodium Chloride) 1,020 mls @ 100 mls/hr IV .[id number] LEONA - Labs Labs: 08/15/18 04:38 08/15/18 04:38 PT 13.4 SECONDS (9.7-12.2) H 08/15/18 06:53 INR 1.2 08/15/18 06:53 APTT 27 SECONDS (21-34) 08/15/18 06:53 - Constitutional Appears: No Acute Distress - Head Exam Head Exam: ATRAUMATIC, NORMAL INSPECTION, NORMOCEPHALIC - Eye Exam Eye Exam: EOMI, Normal appearance, PERRL Pupil Exam: NORMAL ACCOMODATION - ENT Exam ENT Exam: Mucous Membranes Moist - Respiratory Exam Respiratory Exam: Clear to Ausculation Bilateral, NORMAL BREATHING PATTERN. absent: Decreased Breath Sounds, Rales, Rhonchi, Wheezes - Cardiovascular Exam Cardiovascular Exam: Tachycardia, +S1, +S2 - GI/Abdominal Exam GI & Abdominal Exam: Soft, Tenderness (LLQ), Normal Bowel Sounds. absent: Distended - Extremities Exam Extremities Exam: Normal Inspection. absent: Pedal Edema, Tenderness - Neurological Exam Neurological Exam: Alert, Awake, Oriented x3 - Psychiatric Exam Psychiatric exam: Normal Affect, Normal Mood - Skin Skin Exam: Dry, Intact, Normal Color, Warm Assessment and Plan - Assessment and Plan (Free Text) Plan: Acute Appendicitis -- General Surgery consulted Dr. Ramírez Imaging: - CT Abdomen/ Pelvis: Uncomplicated acute appendicitis without perforation or abscess formation. Reactive ileus. Management: - NPO, IVF, Cipro, Flagyl (08/15/18), Florastor - Patient for OR today, 1 pm Hypokalemia - Repleted - EKG - NSR 91 bpm, left axis deviation, QTc 519ms, no acute ST/T wave changes - Will follow up BMP @ 11:30 and replete as needed Hypertension - Will confirm medications with [facility] Hx Bilateral Pulmonary Embolisms - Diagnosed 07/2017 at [facility] [place] - ASA, Eliquis 5mg PO BID for life, will resume after patient is post op Hx Alcohol Use Disorder - Educated on the risks of continued use - Spoke about cessation - Will monitor for DTs Prophylactic Measures - GI PPX: Protonix daily - DVT PPX: SCDs, VTE c/i due to surgery DW Dr. Schaefer, Angeles Salgado DO, PGY2
[2018-08-15] MEDS ORDERED: Ciprofloxacin 400mg/200ml D5W 400 MG/200 ML BAG IVPB ONE (07:55)
[2018-08-15] MEDS ORDERED: HYDROmorphone 1 mg/ml ISec IVP PRN (08:41)
--- NOTE | 2018-08-15 09:10 | CT ---
Date of service: 08/15/2018 PROCEDURE: CT Abdomen and Pelvis with contrast HISTORY: rlq pain, r/o appendicitis COMPARISON: None available. TECHNIQUE: CT scan of the abdomen and pelvis was performed after administration of intravenous contrast. Oral contrast was not administered. Coronal and sagittal reformatted images were obtained. Contrast dose: 100 mL Visipaque 320 Radiation dose: Total exam DLP = 442.3 mGy-cm. This CT exam was performed using one or more of the following dose reduction techniques: Automated exposure control, adjustment of the mA and/or kV according to patient size, and/or use of iterative reconstruction technique. FINDINGS: LOWER THORAX: The visualized lungs are clear. LIVER: Normal in size with homogeneous enhancement. No gross lesion or ductal dilatation. GALLBLADDER AND BILE DUCTS: Well distended. No calcified gallstones, wall thickening or pericholecystic fluid. PANCREAS: Normal in size with homogeneous enhancement. No gross lesion or ductal dilatation. SPLEEN: Normal in size and appearance. ADRENALS: No discrete nodule. KIDNEYS AND URETERS: Normal in size with homogeneous enhancement. No hydronephrosis. No solid mass. VASCULATURE: No aortic aneurysm. There are no aortic atherosclerotic calcifications or mural plaque present. BOWEL: Evaluation of the bowel is limited in the absence of oral contrast. The proximal small bowel loops are normal in caliber. There are fluid-filled mildly dilated mid and distal small bowel loops and fluid in the ascending and transverse colon, likely related to mild ileus. The left hemicolon is essentially decompressed. No bowel wall thickening or obstruction. APPENDIX: The appendix is distended and measures 12 mm in diameter. There is mild wall thickening and enhancement and significant inflammatory changes and fluid in the surrounding right lower quadrant fat. PERITONEUM: No free fluid. No free air. LYMPH NODES: No enlarged lymph nodes. BLADDER: Decompressed. REPRODUCTIVE: The prostate gland is normal in size. BONES: No acute fracture. Within normal limits for the patient's age. OTHER FINDINGS: None. IMPRESSION: Acute uncomplicated appendicitis. No evidence for perforation or abscess. A preliminary report was provided by [facility].
[2018-08-15] MEDS: Saccharomyces Boulardi 250 mg Cap PO SCH ×2 (10:06→17:34)
--- NOTE | 2018-08-15 10:58 | RAD ---
Date of service: 08/15/2018 PROCEDURE: CHEST RADIOGRAPH, 1 VIEW HISTORY: preop COMPARISON: 08/06/2017. FINDINGS: LUNGS: The lungs are well inflated and clear. PLEURA: No pneumothorax or pleural effusion. CARDIOVASCULAR: The heart is normal in size. No aortic atherosclerotic calcifications present. OSSEOUS STRUCTURES: Within normal limits for the patient's age. VISUALIZED UPPER ABDOMEN: Normal. OTHER FINDINGS: None. IMPRESSION: No active pulmonary disease.
[2018-08-15 11:33] LABS: BLOOD UREA NITROGEN 17 mg/dL (9-20); CALCIUM 8.7 mg/dl (8.6-10.4); GFR NON-AFRICAN AMERICAN > 60
[2018-08-15] MEDS ORDERED: Potassium Chloride 20 mEq ER Tab PO ONE (12:30)
--- NOTE | 2018-08-15 12:36 | CP.PCM.CON ---
History of Present Illness - History of Present Illness History of Present Illness: 53 year old male with a history of PE on Xarelto x 1 year, presenting with abdominal pain, found to have acute appendicitis. The patient last took Xarelto 20mg yesterday at 6AM. He denies abnormal bleeding and bruising. He is to go to the OR later today. Past medical history: PE on Xarelto Past surgical history: Exploratory laparotomy unknown reason Family history: Denies hematologic and oncologic problems Social history: Drinks alcohol daily, and smokes marijuana Allergies: Penicillins Review of systems: All remaining review of systems including HEENT, cardiovascular, respiratory, gastrointestinal, genitourinary, musculoskeletal, dermatologic, neurologic, and psychiatric are negative unless mentioned in the HPI. Past Patient History - Past Medical History & Family History Past Medical History?: Yes - Past Social History Smoking Status: Never Smoked - CARDIAC Hx Hypertension: Yes - PULMONARY Hx Pulmonary Embolism: Yes (2018) - NEUROLOGICAL Hx Neurological Disorder: No - HEENT Hx HEENT Problems: No - RENAL Hx Chronic Kidney Disease: No - ENDOCRINE/METABOLIC Hx Endocrine Disorders: No - HEMATOLOGICAL/ONCOLOGICAL Hx Blood Disorders: No - INTEGUMENTARY Hx Dermatological Problems: No - MUSCULOSKELETAL/RHEUMATOLOGICAL Hx Arthritis: Yes - GENITOURINARY/GYNECOLOGICAL Hx Genitourinary Disorders: No - PSYCHIATRIC Hx Substance Use: Yes - SURGICAL HISTORY Hx Surgeries: Yes Other/Comment: abdominal - ANESTHESIA Hx Anesthesia: Yes Hx Anesthesia Reactions: No Hx Malignant Hyperthermia: No Meds Allergies/Adverse Reactions: Allergies Allergy/AdvReac Type Severity Reaction Status Date / Time Penicillins Allergy Severe ANAPHYLAXIS Verified 08/15/18 04:00 - Medications Medications: Current Medications Hydromorphone HCl (Dilaudid) 1 mg IVP Q6 PRN PRN Reason: Pain, severe (8-10) Potassium Chloride 40 meq/ (Sodium Chloride) 1,020 mls @ 100 mls/hr IV .[id number] [facility] Last Admin: 08/15/18 08:57 Dose: 100 mls/hr Ciprofloxacin (Cipro 400mg/200ml Dsw) 400 mg in 200 mls @ 133 mls/hr IVPB Q12H [facility]; Protocol Metronidazole (Flagyl) 500 mg in 100 mls @ 100 mls/hr IVPB Q8H [facility]; Protocol Potassium Chloride (Potassium Chloride 20 Meq/100 Ml) 20 meq in 100 mls @ 50 mls/hr IVPB Q2 [facility] Stop: 08/15/18 17:59 Last Admin: 08/15/18 12:09 Dose: 50 mls/hr Morphine Sulfate (Morphine) 1 mg IVP Q6H PRN PRN Reason: Pain, moderate (4-7) Pantoprazole Sodium (Protonix Inj) 40 mg IVP DAILY [facility] Last Admin: 08/15/18 09:06 Dose: 40 mg Pneumococcal Polyvalent Vaccine (Pneumovax 23 Vaccine) 0.5 ml IM .ONCE ONE Stop: 08/16/18 10:01 Saccharomyces Boulardii (Florastor) 250 mg PO BID [facility] Last Admin: 08/15/18 10:06 Dose: Not Given Physical Exam - Head Exam Head Exam: ATRAUMATIC - Eye Exam Eye Exam: Normal appearance - ENT Exam ENT Exam: Mucous Membranes Dry - Neck Exam Neck exam: Positive for: Normal Inspection - Respiratory Exam Respiratory Exam: NORMAL BREATHING PATTERN - Cardiovascular Exam Cardiovascular Exam: +S1, +S2 - GI/Abdominal Exam GI & Abdominal Exam: Normal Bowel Sounds - Extremities Exam Extremities exam: Positive for: normal inspection - Neurological Exam Neurological exam: Oriented x3 - Psychiatric Exam Psychiatric exam: Normal Affect, Normal Mood - Skin Skin Exam: Warm Results - Vital Signs Recent Vital Signs: Last Vital Signs Temp 99.6 F 08/15/18 12:20 Pulse 91 H 08/15/18 12:20 Resp 20 08/15/18 12:20 BP 128/78 08/15/18 12:20 Pulse Ox 100 08/15/18 12:20 - Labs Result Diagrams: 08/17/18 07:22 08/17/18 07:22 Labs: Laboratory Results - last 24 hr 08/15/18 08/15/18 08/15/18 04:38 04:38 05:11 WBC 17.1 H D RBC 4.55 Hgb 12.7 Hct 37.9 MCV 83.3 D MCH 27.8 MCHC 33.4 RDW 13.9 Plt Count 240 MPV 8.7 Neut % (Auto) 77.9 H Lymph % (Auto) 10.5 L [place] % (Auto) 10.5 H Eos % (Auto) 0.8 Baso % (Auto) 0.3 Neut # (Auto) 13.3 H Lymph # (Auto) 1.8 [place] # (Auto) 1.8 H Eos # (Auto) 0.1 Baso # (Auto) 0.1 PT INR APTT Sodium 132 Potassium 2.5 L* D Chloride 85 L Carbon Dioxide 39 H Anion Gap 11 BUN 16 Creatinine 0.9 Est GFR ( Amer) > 60 Est GFR (Non-Af Amer) > 60 Random Glucose 116 H D Calcium 9.5 Phosphorus Magnesium Total Bilirubin 0.6 AST 40 ALT 26 Alkaline Phosphatase 85 Total Protein 8.3 Albumin 4.8 Globulin 3.5 Albumin/Globulin Ratio 1.4 Lipase 75 Urine Color Yellow Urine Clarity Clear Urine pH 8.0 Ur Specific [place] 1.016 Urine Protein 1+ H Urine Glucose (UA) Normal Urine Ketones Negative Urine Blood Negative Urine Nitrate Negative Urine Bilirubin Negative Urine Urobilinogen Normal Ur Leukocyte Esterase Neg Urine WBC (Auto) < 1 Urine RBC (Auto) 1 Blood Type Antibody Screen 08/15/18 08/15/18 08/15/18 06:41 06:53 06:53 WBC RBC Hgb Hct MCV MCH MCHC RDW Plt Count MPV Neut % (Auto) Lymph % (Auto) [place] % (Auto) Eos % (Auto) Baso % (Auto) Neut # (Auto) Lymph # (Auto) [place] # (Auto) Eos # (Auto) Baso # (Auto) PT 13.4 H INR 1.2 APTT 27 Sodium Potassium Chloride Carbon Dioxide Anion Gap BUN Creatinine Est GFR ( Amer) Est GFR (Non-Af Amer) Random Glucose Calcium Phosphorus 2.6 Magnesium 2.2 Total Bilirubin AST ALT Alkaline Phosphatase Total Protein Albumin Globulin Albumin/Globulin Ratio Lipase Urine Color Urine Clarity Urine pH Ur Specific [place] Urine Protein Urine Glucose (UA) Urine Ketones Urine Blood Urine Nitrate Urine Bilirubin Urine Urobilinogen Ur Leukocyte Esterase Urine WBC (Auto) Urine RBC (Auto) Blood Type O POSITIVE Antibody Screen Negative 08/15/18 11:06 WBC RBC Hgb Hct MCV MCH MCHC RDW Plt Count MPV Neut % (Auto) Lymph % (Auto) [place] % (Auto) Eos % (Auto) Baso % (Auto) Neut # (Auto) Lymph # (Auto) [place] # (Auto) Eos # (Auto) Baso # (Auto) PT INR APTT Sodium 132 Potassium 2.7 L Chloride 90 L Carbon Dioxide 35 H Anion Gap 10 BUN 17 Creatinine 0.9 Est GFR ( Amer) > 60 Est GFR (Non-Af Amer) > 60 Random Glucose 96 Calcium 8.7 Phosphorus Magnesium Total Bilirubin AST ALT Alkaline Phosphatase Total Protein Albumin Globulin Albumin/Globulin Ratio Lipase Urine Color Urine Clarity Urine pH Ur Specific [place] Urine Protein Urine Glucose (UA) Urine Ketones Urine Blood Urine Nitrate Urine Bilirubin Urine Urobilinogen Ur Leukocyte Esterase Urine WBC (Auto) Urine RBC (Auto) Blood Type Antibody Screen Assessment & Plan (1) Preoperative clearance Assessment and Plan: Xarelto is recommended to be held 3 days prior to surgery he is high risk for bleeding if surgery is performed prior to this if possible, recommend postponement of surgery weighing the risks and benefits of possible appendix rupture I have spoken to pharmacy and they are unable to obtain an antidote (andexxa) and prothrombin complex until tomorrow discussed with PMD, surgeon, and anesthesia Status: Acute (2) Leukocytosis Assessment and Plan: secondary to appendicitis antbiotics surgery Status: Acute (3) Anemia Assessment and Plan: chronic disease retic count, b12, folate, ferritin to further characterize Status: Acute (4) History of pulmonary embolism Assessment and Plan: on anticoagulation held for surgery Thank you for this interesting consult. Status: Acute
[2018-08-15 14:34] LABS: BLOOD UREA NITROGEN 17 mg/dL (9-20); CALCIUM 8.5 mg/dl (8.6-10.4); GFR NON-AFRICAN AMERICAN > 60
[2018-08-15] MEDS ORDERED: Propofol 10 mg/ml Inj (20 ML) ONE ×2 (15:17→16:09)
[2018-08-15] MEDS ORDERED: Midazolam 2 MG/2 ML VIAL ONE (15:17)
[2018-08-15] MEDS ORDERED: Rocuronium 10 mg/ml (5 ml) ONE (15:29)
[2018-08-15] MEDS ORDERED: Lidocaine Hydrochloride 5 ML INJ ONE (15:29)
[2018-08-15] MEDS ORDERED: Neostigmine 1:1000 (1 mg/ml) Inj ONE (16:39)
--- NOTE | 2018-08-15 17:07 | PCM.SURG1 ---
Surgeon's Initial Post Op Note - Surgeon's Notes Surgeon: MD Darrell Boil Off Machine Operator Cloth: Luda,PGY3 Pre-Operative Diagnosis: Acute appendicitis Operative Findings: inflammed appendix, midline adhesions with bowel Post-Operative Diagnosis: Acute appendicitis Operation Performed: Laparoscopic appendectomy, lysis of adhesions Specimen/Specimens Removed: appendix Estimated Blood Loss: EBL {In ML}: 10 Date of Surgery/Procedure: 08/15/18 Time of Surgery/Procedure: 16:00
[2018-08-15] MEDS: metroNIDAZOLE IV 500 mg/100 ml 500 MG/100 ML BAG IVPB SCH ×2 (17:33→22:34)
[2018-08-15] MEDS: HYDROmorphone 0.5 mg/0.5 ml ISec IVP PRN ×2 (17:35→17:50)
[2018-08-15] MEDS: Ciprofloxacin 400mg/200ml D5W 400 MG/200 ML BAG IVPB SCH (20:55)
[2018-08-16] MEDS: metroNIDAZOLE IV 500 mg/100 ml 500 MG/100 ML BAG IVPB SCH ×3 (06:18→22:08)
[2018-08-16] MEDS: Ciprofloxacin 400mg/200ml D5W 400 MG/200 ML BAG IVPB SCH ×2 (06:18→18:39)
--- NOTE | 2018-08-16 08:40 | CP.PCM.PN ---
Subjective - Date & Time of Evaluation Date of Evaluation: 08/16/18 Time of Evaluation: 07:30 - Subjective Subjective: General Surgery Note for Dr. Ramírez Patient seen and examined at bedside. No acute event overnight. Patient reports mild pain but states controlled with medication. Denies fever/chills or nausea/vomiting. He is tolerating diet. He denies flatus or BM. He has no difficulty urinating. Potassium remains slightly low. Objective - Vital Signs/Intake and Output Vital Signs (last 24 hours): Temp Pulse Resp BP Pulse Ox 98.5 F 75 16 120/74 95 08/16/18 05:00 08/16/18 05:00 08/16/18 05:00 08/16/18 05:00 08/16/18 05:00 Intake and Output: 08/16/18 08/16/18 06:59 18:59 Intake Total 420 Output Total 800 Balance -380 - Medications Medications: Current Medications Acetaminophen (Tylenol 325mg Tab) 650 mg PO Q6 PRN PRN Reason: Fever >100.4 F Furosemide (Lasix) 20 mg PO DAILY [facility] Hydromorphone HCl (Dilaudid) 1 mg IVP Q6 PRN PRN Reason: Pain, severe (8-10) Potassium Chloride 40 meq/ (Sodium Chloride) 1,020 mls @ 100 mls/hr IV .[id number] [facility] Last Admin: 08/16/18 03:02 Dose: 100 mls/hr Ciprofloxacin (Cipro 400mg/200ml Dsw) 400 mg in 200 mls @ 133 mls/hr IVPB Q12H [facility]; Protocol Last Admin: 08/16/18 06:18 Dose: 133 mls/hr Metronidazole (Flagyl) 500 mg in 100 mls @ 100 mls/hr IVPB Q8H [facility]; Protocol Last Admin: 08/16/18 06:18 Dose: 100 mls/hr Metolazone (Zaroxolyn) 10 mg PO DAILY [facility] Nifedipine (Procardia Xl) 90 mg PO DAILY [facility] Pantoprazole Sodium (Protonix Inj) 40 mg IVP DAILY [facility] Last Admin: 08/15/18 09:06 Dose: 40 mg Pneumococcal Polyvalent Vaccine (Pneumovax 23 Vaccine) 0.5 ml IM .ONCE ONE Stop: 08/16/18 10:01 Potassium Chloride (K-Dur 20 Meq Er Tab) 20 meq PO DAILY [facility] Saccharomyces Boulardii (Florastor) 250 mg PO BID [facility] Last Admin: 08/15/18 17:34 Dose: Not Given Tramadol HCl (Ultram) 50 mg PO TID PRN PRN Reason: Pain, moderate (4-7) Last Admin: 08/16/18 03:00 Dose: 50 mg - Labs Labs: 08/15/18 04:38 08/15/18 14:13 PT 13.4 SECONDS (9.7-12.2) H 08/15/18 06:53 INR 1.2 08/15/18 06:53 APTT 27 SECONDS (21-34) 08/15/18 06:53 - Constitutional Appears: Non-toxic, No Acute Distress - Head Exam Head Exam: ATRAUMATIC, NORMOCEPHALIC - Eye Exam Eye Exam: EOMI, Normal appearance Pupil Exam: PERRL - ENT Exam ENT Exam: Mucous Membranes Moist - Respiratory Exam Respiratory Exam: NORMAL BREATHING PATTERN - Cardiovascular Exam Cardiovascular Exam: REGULAR RHYTHM - GI/Abdominal Exam GI & Abdominal Exam: Soft, Tenderness (surgical sites), Normal Bowel Sounds. absent: Distended, Firm, Guarding, Rigid, Rebound - Extremities Exam Extremities Exam: Normal Capillary Refill - Back Exam Back Exam: absent: CVA tenderness (L), CVA tenderness (R) - Neurological Exam Neurological Exam: Alert, Awake, Oriented x3 - Psychiatric Exam Psychiatric exam: Normal Affect, Normal Mood - Skin Skin Exam: Dry, Intact, Normal Color, Warm Assessment and Plan - Assessment and Plan (Free Text) Assessment: 53 M s/p lap appendectomy POD#1 Plan: -Regular diet -Pain control -Repleting potassium and phosphorus -Patient may shower -Encourage OOB/Ambulation/IS -Discussed with Dr. Darrell Richards PGY2
[2018-08-16 09:11] LABS: HEMOGLOBIN 11.7 g/dL (12.0-18.0); MEAN CORPUSCULAR HEMOGLOBIN 28.1 pg (27.0-31.0); MEAN CORPUSCULAR HGB CONC 32.9 g/dL (33.0-37.0); MEAN PLATELET VOLUME 8.3 fL (7.2-11.7); RBC 4.17 Mil/uL (4.40-5.90); RED CELL DISTRIBUTION WIDTH 14.1 % (11.5-14.5); WHITE BLOOD COUNT 14.4 K/uL (4.8-10.8)
[2018-08-16 09:24] LABS: MEAN CELL VOLUME 85.3 fL (80.0-94.0)
[2018-08-16] MEDS: Saccharomyces Boulardi 250 mg Cap PO SCH ×2 (09:44→18:06)
[2018-08-16] MEDS ORDERED: Pneumococcal 23-Valent Vaccine IM ONE (10:00)
[2018-08-16 10:01] LABS: BLOOD UREA NITROGEN 10 mg/dL (9-20); CALCIUM 8.8 mg/dl (8.6-10.4); GFR NON-AFRICAN AMERICAN > 60
[2018-08-16] MEDS: NIFEdipine 90 mg ER Tab PO SCH (10:04)
[2018-08-16] MEDS: metOLazone 5 MG TAB PO SCH (10:04)
[2018-08-16] MEDS ORDERED: Potassium Phosphate 30 MMOLE in Sodium Chloride 0.9% 250 ML IV ONE (10:32)
[2018-08-16] MEDS ORDERED: Potassium Chloride 20 mEq/15 ml LIQ UD PO SCH ×2 (10:45→14:15)
[2018-08-16] MEDS: Potassium Chloride 20 mEq ER Tab PO SCH ×2 (11:36→22:38)
[2018-08-16] MEDS: Potassium Chloride 20 mEq/15 ml LIQ UD PO ONE ×2 (14:21→14:28)
--- NOTE | 2018-08-16 16:30 | OP ---
PROCEDURE DATE: 08/15/2018 PREOPERATIVE DIAGNOSIS: Acute appendicitis. POSTOPERATIVE DIAGNOSIS: Acute appendicitis. SURGEON: Carlos Ramírez MD AREA MANAGER: Saorj Lares DO, PGY-3 OPERATION PERFORMED: Laparoscopic appendectomy with extensive lysis of adhesions. ANESTHESIOLOGIST: Barrington Moss MD ANESTHESIA: General. ESTIMATED BLOOD LOSS: 10 mL. DESCRIPTION OF OPERATION: Upon sedation and intubation, the patient was placed on a supine position and abdomen was prepped and draped in the usual sterile fashion. With the patient's past surgical history of exploratory laparotomy and apparent midline incision, decision was made to enter the abdomen using a Visiport on the left mid abdomen. The abdomen was entered under direct visualization until intraabdominal space was reached. Camera was used to assess the intraabdominal space at the side of the entry to make sure that no injury was achieved on entering. It was noted that entry point was safe with no injury, but it was also noted that there was extensive adhesions in the midline of the abdomen. Contents of the adhesions included omentum, which was stuck from the midline and also bowel, which was also stuck on the midline. Two more trocars were placed in the LLQ and suprapubic region measuring 12 and 5mm each. Laparoscopic LigaSure was used for lysis of adhesions and also to dissect the omentum away from the abdominal wall. The bowel was left in place. Care was then taken to the right lower quadrant of the abdomen were a purulent appendix was seen. Dissection of the appendix was done with laparoscopic [place] dissectors and also laparoscopic LigaSure. Upon dissection up until the base of the cecum, mesentery of the appendix was dissected away and a window was made for placement of grace. Upon achievement of window between the mesentery and the appendix, laparoscopic grace with a white load was used to transect the mesoappendix. Upon transection of the mesoappendix, care was taken to assess that hemostasis was achieved. Clip was placed at sides on the mesoappendix, which had mild oozing. Upon placement of clip, the oozing stopped and hemostasis was achieved. Laparoscopic staple was used to transect the appendix at its base near the cecum. The specimen was placed in an EndoCatch bag, which was removed via left mid abdominal incision. Final look into the abdomen was done to assess for hemostasis, which was achieved. The left mid abdominal incision at the fascia was closed with 0 Vicryl and a [id number] stitch. The suprapubic incision was also closed at the fascia with 0 Vicryl and [id number]-[id number] stitch. All the incisions were closed at skin level with 4-0 Monocryl. Steri-Strips, 2 x 2 gauze, and island dressing was used as topical dressing. Upon completion of the operation, the patient was awakened from anesthesia and taken to postanesthesia care unit. The patient tolerated the procedure well without any complications. Estimated blood loss was 10 mL. Saroj Lares DO Carlos Ramírez MD CRISTOPHER
[2018-08-16 19:35] LABS: BLOOD UREA NITROGEN 9 mg/dL (9-20); CALCIUM 8.9 mg/dl (8.6-10.4); GFR NON-AFRICAN AMERICAN > 60
[2018-08-16] MEDS ORDERED: Magnesium Sulfate 1 gm in D5W 1 GM/100 ML BAG IVPB ONE (22:15)
[2018-08-17] MEDS: Potassium Chloride 20 mEq ER Tab PO SCH ×2 (00:12→09:12)
[2018-08-17] MEDS: metroNIDAZOLE IV 500 mg/100 ml 500 MG/100 ML BAG IVPB SCH ×3 (06:18→22:00)
[2018-08-17] MEDS: Ciprofloxacin 400mg/200ml D5W 400 MG/200 ML BAG IVPB SCH ×2 (06:19→20:11)
[2018-08-17 07:31] LABS: BASO # 0.1 K/uL (0.0-0.2); BASO % 0.7 % (0.0-2.0); EOS # 0.3 K/uL (0.0-0.7); EOS % 2.3 % (0.0-4.0); HEMOGLOBIN 11.4 g/dL (12.0-18.0); LYMPH # 2.1 K/uL (1.0-4.3); LYMPH % 15.7 % (20.0-40.0); MEAN CELL VOLUME 85.7 fL (80.0-94.0); MEAN CORPUSCULAR HEMOGLOBIN 28.9 pg (27.0-31.0); MEAN CORPUSCULAR HGB CONC 33.7 g/dL (33.0-37.0); MEAN PLATELET VOLUME 8.4 fL (7.2-11.7); MONO # 1.3 K/uL (0.0-0.8); MONO % 10.2 % (0.0-10.0); NEUT # 9.3 K/uL (1.8-7.0); NEUT % 71.1 % (50.0-75.0); RBC 3.94 Mil/uL (4.40-5.90); RED CELL DISTRIBUTION WIDTH 13.9 % (11.5-14.5); WHITE BLOOD COUNT 13.2 K/uL (4.8-10.8)
[2018-08-17 07:59] LABS: BLOOD UREA NITROGEN 8 mg/dL (9-20); CALCIUM 8.8 mg/dl (8.6-10.4); GFR NON-AFRICAN AMERICAN > 60
--- NOTE | 2018-08-17 08:29 | CP.PCM.PN ---
Subjective - Date & Time of Evaluation Date of Evaluation: 08/17/18 Time of Evaluation: 08:26 - Subjective Subjective: SURGERY NOTE FOR DR. CARTAGENA 53M seen and examined at bedside. Patient states pain is improving, he denies nausea or vomiting and states he is tolerating diet. Objective - Vital Signs/Intake and Output Vital Signs (last 24 hours): Temp Pulse Resp BP Pulse Ox 98.1 F 88 20 114/77 98 08/17/18 07:30 08/17/18 07:30 08/17/18 07:30 08/17/18 07:30 08/17/18 07:30 Intake and Output: 08/17/18 08/17/18 06:59 18:59 Intake Total 1610 Output Total 950 Balance 660 - Medications Medications: Current Medications Acetaminophen (Tylenol 325mg Tab) 650 mg PO Q6 PRN PRN Reason: Fever >100.4 F Furosemide (Lasix) 20 mg PO DAILY [facility] Last Admin: 08/16/18 09:44 Dose: 20 mg Hydromorphone HCl (Dilaudid) 1 mg IVP Q6 PRN PRN Reason: Pain, severe (8-10) Potassium Chloride 40 meq/ (Sodium Chloride) 1,020 mls @ 100 mls/hr IV .[id number] [facility] Last Admin: 08/17/18 06:17 Dose: 100 mls/hr Ciprofloxacin (Cipro 400mg/200ml Dsw) 400 mg in 200 mls @ 133 mls/hr IVPB Q12H [facility]; Protocol Last Admin: 08/17/18 06:19 Dose: 133 mls/hr Metronidazole (Flagyl) 500 mg in 100 mls @ 100 mls/hr IVPB Q8H [facility]; Protocol Last Admin: 08/17/18 06:18 Dose: 100 mls/hr Metolazone (Zaroxolyn) 10 mg PO DAILY [facility] Last Admin: 08/16/18 10:04 Dose: 10 mg Nifedipine (Procardia Xl) 90 mg PO DAILY [facility] Last Admin: 08/16/18 10:04 Dose: 90 mg Pantoprazole Sodium (Protonix Inj) 40 mg IVP DAILY [facility] Last Admin: 08/16/18 09:45 Dose: 40 mg Potassium Chloride (K-Dur 20 Meq Er Tab) 20 meq PO DAILY [facility] Last Admin: 08/16/18 11:36 Dose: 20 meq Saccharomyces Boulardii (Florastor) 250 mg PO BID [facility] Last Admin: 08/16/18 18:06 Dose: 250 mg Tramadol HCl (Ultram) 50 mg PO TID PRN PRN Reason: Pain, moderate (4-7) Last Admin: 08/16/18 03:00 Dose: 50 mg - Labs Labs: 08/17/18 07:22 08/17/18 07:22 PT 13.4 SECONDS (9.7-12.2) H 08/15/18 06:53 INR 1.2 08/15/18 06:53 APTT 27 SECONDS (21-34) 08/15/18 06:53 - Constitutional Appears: Non-toxic, No Acute Distress - Respiratory Exam Respiratory Exam: Clear to Ausculation Bilateral, NORMAL BREATHING PATTERN - Cardiovascular Exam Cardiovascular Exam: REGULAR RHYTHM, +S1, +S2 - GI/Abdominal Exam GI & Abdominal Exam: Soft. absent: Distended, Firm, Guarding, Rigid, Tenderness, Rebound Additional comments: incision CDI - Neurological Exam Neurological Exam: Alert, Awake Assessment and Plan - Assessment and Plan (Free Text) Assessment: 53M s/p lap appendectomy POD#2 Plan: - Monitor WBC - Cont abx - Monitor potassium - Ok to resume anticoag Further recs discuss with Dr. Darrell Lares, PGY3
[2018-08-17] MEDS: NIFEdipine 90 mg ER Tab PO SCH (09:12)
[2018-08-17] MEDS: Saccharomyces Boulardi 250 mg Cap PO SCH ×2 (09:12→18:14)
[2018-08-17] MEDS: metOLazone 5 MG TAB PO SCH (09:12)
[2018-08-17] MEDS: Potassium Chloride 20 mEq/15 ml LIQ UD PO SCH ×2 (12:14→14:18)
--- NOTE | 2018-08-18 00:03 | CP.PCM.PN ---
Subjective - Date & Time of Evaluation Date of Evaluation: 08/16/18 Time of Evaluation: 16:00 - Subjective Subjective: Tolerated surgery well No bleeding/hemostasis issues. Objective - Vital Signs/Intake and Output Vital Signs (last 24 hours): Temp Pulse Resp BP Pulse Ox 99.5 F 104 H 20 123/70 96 08/17/18 15:00 08/17/18 15:00 08/17/18 15:00 08/17/18 15:00 08/17/18 15:00 Intake and Output: 08/17/18 08/18/18 18:59 06:59 Intake Total 1600 Balance 1600 - Medications Medications: Current Medications Acetaminophen (Tylenol 325mg Tab) 650 mg PO Q6 PRN PRN Reason: Fever >100.4 F Furosemide (Lasix) 20 mg PO DAILY [facility] Last Admin: 08/17/18 09:12 Dose: 20 mg Hydromorphone HCl (Dilaudid) 1 mg IVP Q6 PRN PRN Reason: Pain, severe (8-10) Potassium Chloride 40 meq/ (Sodium Chloride) 1,020 mls @ 100 mls/hr IV .[id number] [facility] Last Admin: 08/17/18 20:13 Dose: 100 mls/hr Ciprofloxacin (Cipro 400mg/200ml Dsw) 400 mg in 200 mls @ 133 mls/hr IVPB Q12H [facility]; Protocol Last Admin: 08/17/18 20:11 Dose: 133 mls/hr Metronidazole (Flagyl) 500 mg in 100 mls @ 100 mls/hr IVPB Q8H [facility]; Protocol Last Admin: 08/17/18 22:00 Dose: 100 mls/hr Metolazone (Zaroxolyn) 10 mg PO DAILY [facility] Last Admin: 08/17/18 09:12 Dose: 10 mg Nifedipine (Procardia Xl) 90 mg PO DAILY [facility] Last Admin: 08/17/18 09:12 Dose: 90 mg Pantoprazole Sodium (Protonix Inj) 40 mg IVP DAILY [facility] Last Admin: 08/17/18 09:11 Dose: 40 mg Potassium Chloride (K-Dur 20 Meq Er Tab) 20 meq PO DAILY [facility] Last Admin: 08/17/18 09:12 Dose: 20 meq Rivaroxaban (Xarelto) 20 mg PO DAILY [facility] Last Admin: 08/17/18 14:17 Dose: 20 mg Saccharomyces Boulardii (Florastor) 250 mg PO BID [facility] Last Admin: 08/17/18 18:14 Dose: 250 mg Tramadol HCl (Ultram) 50 mg PO TID PRN PRN Reason: Pain, moderate (4-7) Last Admin: 08/16/18 03:00 Dose: 50 mg - Labs Labs: 08/17/18 07:22 08/17/18 07:22 PT 13.4 SECONDS (9.7-12.2) H 08/15/18 06:53 INR 1.2 08/15/18 06:53 APTT 27 SECONDS (21-34) 08/15/18 06:53 - Head Exam Head Exam: ATRAUMATIC - Eye Exam Eye Exam: Normal appearance - ENT Exam ENT Exam: Mucous Membranes Dry - Respiratory Exam Respiratory Exam: NORMAL BREATHING PATTERN - Cardiovascular Exam Cardiovascular Exam: +S1, +S2 - GI/Abdominal Exam GI & Abdominal Exam: Normal Bowel Sounds Assessment and Plan (1) Leukocytosis Assessment & Plan: improving s/p surgery Status: Acute (2) Anemia Assessment & Plan: mild surgical blood loss f/u w/u Status: Acute (3) History of pulmonary embolism Assessment & Plan: restart Xarelto once cleared by surgery Status: Acute
[2018-08-18] MEDS: metroNIDAZOLE IV 500 mg/100 ml 500 MG/100 ML BAG IVPB SCH ×3 (06:06→22:48)
[2018-08-18 07:55] LABS: BASO # 0.1 K/uL (0.0-0.2); BASO % 0.7 % (0.0-2.0); EOS # 0.4 K/uL (0.0-0.7); EOS % 3.4 % (0.0-4.0); HEMOGLOBIN 11.7 g/dL (12.0-18.0); LYMPH % 17.5 % (20.0-40.0); MEAN CELL VOLUME 85.8 fL (80.0-94.0); MEAN CORPUSCULAR HEMOGLOBIN 28.2 pg (27.0-31.0); MEAN CORPUSCULAR HGB CONC 32.8 g/dL (33.0-37.0); MEAN PLATELET VOLUME 8.8 fL (7.2-11.7); MONO # 1.3 K/uL (0.0-0.8); MONO % 11.3 % (0.0-10.0); NEUT # 7.8 K/uL (1.8-7.0); NEUT % 67.1 % (50.0-75.0); RBC 4.15 Mil/uL (4.40-5.90); RED CELL DISTRIBUTION WIDTH 13.8 % (11.5-14.5); WHITE BLOOD COUNT 11.6 K/uL (4.8-10.8)
[2018-08-18 08:01] LABS: BLOOD UREA NITROGEN 14 mg/dL (9-20); CALCIUM 9.2 mg/dl (8.6-10.4); GFR NON-AFRICAN AMERICAN > 60
[2018-08-18] MEDS: Ciprofloxacin 400mg/200ml D5W 400 MG/200 ML BAG IVPB SCH ×2 (08:13→19:06)
[2018-08-18] MEDS: Potassium Chloride 20 mEq ER Tab PO SCH (10:22)
[2018-08-18] MEDS: Saccharomyces Boulardi 250 mg Cap PO SCH ×2 (10:23→19:07)
[2018-08-18] MEDS: NIFEdipine 90 mg ER Tab PO SCH (10:23)
[2018-08-18] MEDS: metOLazone 5 MG TAB PO SCH (10:23)
--- NOTE | 2018-08-18 10:42 | CP.PCM.PN ---
Subjective - Date & Time of Evaluation Date of Evaluation: 08/18/18 Time of Evaluation: 10:39 - Subjective Subjective: General Surgery - Dr. Ramírez Pt S&E. QUENTIN. Pt denies any complaints at this time. His abdominal pain is improved and now only mild soreness at the inciisons. He is tolerating diet and no Nausea/Vomiting. He denies any fever/chills, SOB/chest pain. Objective - Vital Signs/Intake and Output Vital Signs (last 24 hours): Temp Pulse Resp BP Pulse Ox 98.0 F 96 H 20 114/85 99 08/18/18 08:59 08/18/18 08:59 08/18/18 08:59 08/18/18 10:23 08/18/18 08:59 Intake and Output: 08/18/18 08/18/18 06:59 18:59 Intake Total 800 Output Total 1000 Balance -200 - Medications Medications: Current Medications Acetaminophen (Tylenol 325mg Tab) 650 mg PO Q6 PRN PRN Reason: Fever >100.4 F Furosemide (Lasix) 20 mg PO DAILY [facility] Last Admin: 08/18/18 10:23 Dose: 20 mg Hydromorphone HCl (Dilaudid) 1 mg IVP Q6 PRN PRN Reason: Pain, severe (8-10) Ciprofloxacin (Cipro 400mg/200ml Dsw) 400 mg in 200 mls @ 133 mls/hr IVPB Q12H [facility]; Protocol Last Admin: 08/18/18 08:13 Dose: 133 mls/hr Metronidazole (Flagyl) 500 mg in 100 mls @ 100 mls/hr IVPB Q8H [facility]; Protocol Last Admin: 08/18/18 06:06 Dose: 100 mls/hr Metolazone (Zaroxolyn) 10 mg PO DAILY [facility] Last Admin: 08/18/18 10:23 Dose: 10 mg Nifedipine (Procardia Xl) 90 mg PO DAILY [facility] Last Admin: 08/18/18 10:23 Dose: 90 mg Pantoprazole Sodium (Protonix Inj) 40 mg IVP DAILY [facility] Last Admin: 08/18/18 10:23 Dose: 40 mg Potassium Chloride (K-Dur 20 Meq Er Tab) 20 meq PO DAILY [facility] Last Admin: 08/18/18 10:22 Dose: 20 meq Rivaroxaban (Xarelto) 20 mg PO DAILY [facility] Last Admin: 08/18/18 10:23 Dose: 20 mg Saccharomyces Boulardii (Florastor) 250 mg PO BID [facility] Last Admin: 08/18/18 10:23 Dose: 250 mg Tramadol HCl (Ultram) 50 mg PO TID PRN PRN Reason: Pain, moderate (4-7) Last Admin: 08/16/18 03:00 Dose: 50 mg - Labs Labs: 08/18/18 07:15 08/18/18 07:15 PT 13.4 SECONDS (9.7-12.2) H 08/15/18 06:53 INR 1.2 08/15/18 06:53 APTT 27 SECONDS (21-34) 08/15/18 06:53 - Constitutional Appears: No Acute Distress - Head Exam Head Exam: ATRAUMATIC, NORMAL INSPECTION, NORMOCEPHALIC - Eye Exam Eye Exam: Normal appearance - Respiratory Exam Respiratory Exam: NORMAL BREATHING PATTERN. absent: Respiratory Distress - Cardiovascular Exam Cardiovascular Exam: REGULAR RHYTHM - GI/Abdominal Exam GI & Abdominal Exam: Soft. absent: Distended, Guarding, Rigid, Tenderness, Rebound - Neurological Exam Neurological Exam: Alert, Oriented x3 - Psychiatric Exam Psychiatric exam: Normal Affect, Normal Mood - Skin Skin Exam: Dry, Intact, Normal Color Assessment and Plan - Assessment and Plan (Free Text) Assessment: 53M s/p lap appendectomy POD#3 Plan: - Cont regular diet - Encourage OOB/Ambulation - Continue anticoagulation as per heme/onc - Clear for D/C home from surgical standpoint Tito Cortes PGY4
--- NOTE | 2018-08-18 10:44 | CP.PCM.PN ---
Subjective - Date & Time of Evaluation Date of Evaluation: 08/18/18 Time of Evaluation: 10:43 - Subjective Subjective: 53 year old male with a past medical history of pulmonary embolus and etoh abuse initially presented to the emergency department with right lower quadrant pain that was sharp in nature and that he rated a 9/10 in severity. Patient also reported a couple of episodes of watery diarrhea in conjunction with the initial symptoms. Patient subsequently went to the emergency department as a results. Patient was seen and examined today. Per nursing no acute events occurred overnight. Patient is tolerating diet and had one bowel movement. Patient denies any abdominal pain, fevers, chills, chest pain shortness of breath, or any other complaints. Medical history: pulmonary embolus Medications: Xarelto Surgical history: appendectomy Social history: current etoh. Objective - Vital Signs/Intake and Output Vital Signs (last 24 hours): Temp Pulse Resp BP Pulse Ox 98.0 F 96 H 20 114/85 99 08/18/18 08:59 08/18/18 08:59 08/18/18 08:59 08/18/18 10:23 08/18/18 08:59 Intake and Output: 08/18/18 08/18/18 06:59 18:59 Intake Total 800 Output Total 1000 Balance -200 - Medications Medications: Current Medications Acetaminophen (Tylenol 325mg Tab) 650 mg PO Q6 PRN PRN Reason: Fever >100.4 F Furosemide (Lasix) 20 mg PO DAILY [facility] Last Admin: 08/18/18 10:23 Dose: 20 mg Hydromorphone HCl (Dilaudid) 1 mg IVP Q6 PRN PRN Reason: Pain, severe (8-10) Ciprofloxacin (Cipro 400mg/200ml Dsw) 400 mg in 200 mls @ 133 mls/hr IVPB Q12H [facility]; Protocol Last Admin: 08/18/18 08:13 Dose: 133 mls/hr Metronidazole (Flagyl) 500 mg in 100 mls @ 100 mls/hr IVPB Q8H [facility]; Protocol Last Admin: 08/18/18 06:06 Dose: 100 mls/hr Metolazone (Zaroxolyn) 10 mg PO DAILY [facility] Last Admin: 08/18/18 10:23 Dose: 10 mg Nifedipine (Procardia Xl) 90 mg PO DAILY [facility] Last Admin: 08/18/18 10:23 Dose: 90 mg Pantoprazole Sodium (Protonix Inj) 40 mg IVP DAILY [facility] Last Admin: 08/18/18 10:23 Dose: 40 mg Potassium Chloride (K-Dur 20 Meq Er Tab) 20 meq PO DAILY [facility] Last Admin: 08/18/18 10:22 Dose: 20 meq Rivaroxaban (Xarelto) 20 mg PO DAILY [facility] Last Admin: 08/18/18 10:23 Dose: 20 mg Saccharomyces Boulardii (Florastor) 250 mg PO BID [facility] Last Admin: 08/18/18 10:23 Dose: 250 mg Tramadol HCl (Ultram) 50 mg PO TID PRN PRN Reason: Pain, moderate (4-7) Last Admin: 08/16/18 03:00 Dose: 50 mg - Labs Labs: 08/18/18 07:15 08/18/18 07:15 PT 13.4 SECONDS (9.7-12.2) H 08/15/18 06:53 INR 1.2 08/15/18 06:53 APTT 27 SECONDS (21-34) 08/15/18 06:53 - Head Exam Head Exam: ATRAUMATIC, NORMAL INSPECTION - Eye Exam Eye Exam: EOMI, Normal appearance, PERRL Pupil Exam: NORMAL ACCOMODATION, PERRL. absent: Irregular, Unequal - ENT Exam ENT Exam: Mucous Membranes Moist, Normal Oropharynx - Respiratory Exam Respiratory Exam: Clear to Ausculation Bilateral, NORMAL BREATHING PATTERN. absent: Respiratory Distress - Cardiovascular Exam Cardiovascular Exam: REGULAR RHYTHM, +S1, +S2 - GI/Abdominal Exam GI & Abdominal Exam: Soft, Normal Bowel Sounds. absent: Rigid, Hyperactive Bowel Sounds - Back Exam Back Exam: NORMAL INSPECTION. absent: paraspinal tenderness - Neurological Exam Neurological Exam: Alert, Awake, CN II-XII Intact, Oriented x3 - Psychiatric Exam Psychiatric exam: Normal Affect, Normal Mood. absent: Depressed - Skin Skin Exam: Dry, Intact, Normal Color Assessment and Plan - Assessment and Plan (Free Text) Assessment: 53 year old male with a past medical history of pulmonary embolus presents to the emergency department with Appendicitis. Plan: 1.Acute appendicitis -Abdomen/pelvis ct: Acute uncomplicated appendicitis. No evidence for perforation or abscess. -Surgery consulted. Cont regular diet - Encourage OOB/Ambulation - Continue anticoagulation as per heme/onc - Clear for D/C home from surgical standpoint -POD#3 -Patient tolerating diet. Leukocytosis trending down. Patient afebrile Medications: Ciprofloxacin 400mg IVPB Q12 Metronidazole 500mg IVPB Q8H Dilaudid 1mg IVP Q6 PRN Tramadol 50mg PO TID PRN aCETAMINOPHEN 650MG po q6 prn 2.Hypokalemia Potassium chloride 20meq Daily 3.hx of Pulmonary embolus Xarelto 20mg PO Daily PPX -Protonix Xarelto Dispo: Patient stable for discharge. All management per Dr. Silvano Garrison, PGY-2 Discharge Instructions: 1.F/u with pmd within 5 days of discharge. 2. Return to hospital for any new or worsening symptoms. Medications: 1.Xarelto 20mg PO Daily, #30, No refills 2.Nifedipine 90 mg po daily, #30, No refills 3.Metolazone 10mg PO Daily, #30, No refills 4.Lasix 20mg PO Daily, #30, No refills
--- NOTE | 2018-08-18 23:15 | CP.PCM.PN ---
Subjective - Date & Time of Evaluation Date of Evaluation: 08/18/18 Time of Evaluation: 11:00 - Subjective Subjective: No complaints. Objective - Vital Signs/Intake and Output Vital Signs (last 24 hours): Temp Pulse Resp BP Pulse Ox 99.2 F 104 H 20 110/82 99 08/18/18 16:00 08/18/18 16:00 08/18/18 16:00 08/18/18 16:00 08/18/18 16:00 - Medications Medications: Current Medications Acetaminophen (Tylenol 325mg Tab) 650 mg PO Q6 PRN PRN Reason: Fever >100.4 F Furosemide (Lasix) 20 mg PO DAILY [facility] Last Admin: 08/18/18 10:23 Dose: 20 mg Hydromorphone HCl (Dilaudid) 1 mg IVP Q6 PRN PRN Reason: Pain, severe (8-10) Ciprofloxacin (Cipro 400mg/200ml Dsw) 400 mg in 200 mls @ 133 mls/hr IVPB Q12H [facility]; Protocol Last Admin: 08/18/18 19:06 Dose: Not Given Metronidazole (Flagyl) 500 mg in 100 mls @ 100 mls/hr IVPB Q8H [facility]; Protocol Last Admin: 08/18/18 22:48 Dose: Not Given Metolazone (Zaroxolyn) 10 mg PO DAILY [facility] Last Admin: 08/18/18 10:23 Dose: 10 mg Nifedipine (Procardia Xl) 90 mg PO DAILY [facility] Last Admin: 08/18/18 10:23 Dose: 90 mg Pantoprazole Sodium (Protonix Inj) 40 mg IVP DAILY [facility] Last Admin: 08/18/18 10:23 Dose: 40 mg Potassium Chloride (K-Dur 20 Meq Er Tab) 20 meq PO DAILY [facility] Last Admin: 08/18/18 10:22 Dose: 20 meq Rivaroxaban (Xarelto) 20 mg PO DAILY [facility] Last Admin: 08/18/18 10:23 Dose: 20 mg Saccharomyces Boulardii (Florastor) 250 mg PO BID [facility] Last Admin: 08/18/18 19:07 Dose: 250 mg Tramadol HCl (Ultram) 50 mg PO TID PRN PRN Reason: Pain, moderate (4-7) Last Admin: 08/16/18 03:00 Dose: 50 mg - Labs Labs: 08/18/18 07:15 08/18/18 07:15 PT 13.4 SECONDS (9.7-12.2) H 08/15/18 06:53 INR 1.2 08/15/18 06:53 APTT 27 SECONDS (21-34) 08/15/18 06:53 - Head Exam Head Exam: ATRAUMATIC - Eye Exam Eye Exam: Normal appearance - ENT Exam ENT Exam: Mucous Membranes Dry - Respiratory Exam Respiratory Exam: NORMAL BREATHING PATTERN - Cardiovascular Exam Cardiovascular Exam: +S1, +S2 - GI/Abdominal Exam GI & Abdominal Exam: Normal Bowel Sounds Assessment and Plan (1) Leukocytosis Assessment & Plan: improving s/p surgery Status: Acute (2) Anemia Assessment & Plan: mild surgical blood loss f/u w/u Status: Acute (3) History of pulmonary embolism Assessment & Plan: restarted Xarelto today Status: Acute
[2018-08-19 00:22] VITALS: BP 117/89; PULSE 89; RESP 18; TEMP 98.1; O2SAT 100
--- NOTE | 2018-08-19 21:59 | CARD ---
APPROVED REPORT Date of service: 08/15/2018 EKG Measurement Heart [id number] <Conclusion> Normal sinus rhythm Left axis deviation Prolonged QT Abnormal ECG
== END 2018-08-19 06:49 | disposition home or self-care (01) | DRG 151 ==
LOC: C.ER 03:52 → C.9E 06:56 → C.5S 08:03
PROVIDERS: ADMIT Internal Medicine Pulmonary Disease; ATTEND Internal Medicine Pulmonary Disease
PROC: 0DNW4ZZ Release Peritoneum, Percutaneous Endoscopic Approach (ICD-10-PCS; 2018-08-15)
PROC: 0DTJ4ZZ Resection of Appendix, Percutaneous Endoscopic Approach (ICD-10-PCS; principal; 2018-08-15 13:00)
DX: K35.80 Unspecified acute appendicitis (principal); I10 Essential (primary) hypertension; F12.90 Cannabis use, unspecified, uncomplicated; D64.9 Anemia, unspecified; Z86.711 Personal history of pulmonary embolism; K66.0 Peritoneal adhesions (postprocedural) (postinfection)

== ENCOUNTER 2018-09-04 20:27 | Emergency (ER) | payer MEDICAID ==
[2018-09-04 20:27] VITALS: BMI 26.7
[2018-09-04 21:01] VITALS: O2SAT 98
[2018-09-04] MEDS ORDERED: Sodium Chloride 0.9% 1,000 ML IV ONE (21:30)
[2018-09-04 21:54] LABS: BASO # 0.1 K/uL (0.0-0.2); EOS # 0.2 K/uL (0.0-0.7); EOS % 2.1 % (0.0-4.0); HEMOGLOBIN 11.4 g/dL (12.0-18.0); LYMPH # 2.6 K/uL (1.0-4.3); LYMPH % 30.3 % (20.0-40.0); MEAN CELL VOLUME 83.2 fL (80.0-94.0); MEAN CORPUSCULAR HEMOGLOBIN 28.1 pg (27.0-31.0); MEAN CORPUSCULAR HGB CONC 33.7 g/dL (33.0-37.0); MEAN PLATELET VOLUME 8.2 fL (7.2-11.7); MONO # 1.5 K/uL (0.0-0.8); MONO % 17.4 % (0.0-10.0); NEUT # 4.2 K/uL (1.8-7.0); NEUT % 49.2 % (50.0-75.0); RBC 4.08 Mil/uL (4.40-5.90); RED CELL DISTRIBUTION WIDTH 13.7 % (11.5-14.5); WHITE BLOOD COUNT 8.6 K/uL (4.8-10.8)
[2018-09-04] MEDS ORDERED: Sodium Chloride 0.9% 1,000 ML ONE (21:59)
[2018-09-04 22:04] LABS: URINE BILIRUBIN NEGATIVE (NEGATIVE); URINE BLOOD NEGATIVE (NEGATIVE); URINE CLARITY Clear (Clear); URINE COLOR Yellow (YELLOW); URINE GLUCOSE (UA) NORMAL (Normal); URINE LEUKOCYTE ESTERASE NEG Leu/uL (Negative); URINE PROTEIN NEGATIVE (NEGATIVE); URINE UROBILINOGEN NORMAL mg/dL (0.2-1.0)
[2018-09-04 22:24] LABS: ALB/GLOB RATIO 1.3 (1.0-2.1); ALBUMIN 4.3 g/dL (3.5-5.0); ALT/SGPT 27 U/L (21-72); AST/SGOT 44 U/L (17-59); BLOOD UREA NITROGEN 17 mg/dL (9-20); GFR NON-AFRICAN AMERICAN > 60; LIPASE 121 U/L (23-300)
[2018-09-04 22:40] VITALS: BP 101/65; PULSE 84; RESP 20; TEMP 98.1
[2018-09-04] MEDS ORDERED: Potassium Chloride 10 mEq ER Tab PO STA (22:49)
[2018-09-04] MEDS ORDERED: Potassium Chloride 20 mEq ER Tab PO ONE ×2 (23:04→23:05)
--- NOTE | 2018-09-04 23:17 | C.PDOC ---
History Of Present Illness 53 year old male presents complaining of hard stools and minor lower abdominal cramping. Patient is s/p appendectomy on 08/16/18. Reports he eats a lot of junk food. Time Seen by Provider: 09/04/18 21:23 Chief Complaint (Nursing): Abdominal Pain History Per: Patient History/Exam Limitations: no limitations Onset/Duration Of Symptoms: Days Current Symptoms Are (Timing): Still Present Location Of Pain/Discomfort: Other (Lower) Radiation Of Pain To:: None Quality Of Discomfort: Cramping Exacerbating Factors: None Alleviating Factors: None Recent travel outside of the [place]: No Past Medical History Reviewed: Historical Data, Nursing Documentation, Vital Signs Vital Signs: Last Vital Signs Temp 98.1 F 09/04/18 22:39 Pulse 84 09/04/18 22:39 Resp 20 09/04/18 22:39 BP 101/65 09/04/18 22:39 Pulse Ox 98 09/04/18 22:39 - Medical History PMH: Arthritis, HTN, Pulmonary Embolism (2018) Denies: Chronic Kidney Disease - [facility] Procedures APPLICATION OF SPLINT (02/25/02) INJECT/INFUSE NEC (10/25/06) RELEASE PERITONEUM, PERCUTANEOUS ENDOSCOPIC APPROACH (08/15/18) RESECTION OF APPENDIX, PERCUTANEOUS ENDOSCOPIC APPROACH (08/15/18) Family History: States: Unknown Family Hx - Social History Hx Alcohol Use: Yes Hx Substance Use: No - Immunization History Hx Tetanus Toxoid Vaccination: Yes Hx Influenza Vaccination: Yes Hx Pneumococcal Vaccination: Yes Review Of Systems Constitutional: Negative for: Fever, Chills Cardiovascular: Negative for: Chest Pain, Palpitations Respiratory: Negative for: Cough, Shortness of Breath Gastrointestinal: Positive for: Abdominal Pain, Other (Hard stools). Negative for: Nausea, Vomiting Neurological: Negative for: Weakness, Numbness Physical Exam - Physical Exam Appears: Non-toxic, Other (thin black male) Skin: Normal Color, Warm Head: Atraumatic, Normacephalic Oral Mucosa: Moist Neck: Normal, Supple Chest: Symmetrical, No Tenderness Cardiovascular: Rhythm Regular Respiratory: Normal Breath Sounds, No Rales, No Rhonchi, No Wheezing Gastrointestinal/Abdominal: Soft, No Tenderness, Other (Mild midline laparotomy scar. Five laproscopy scars with steristrips clean dry and intact.) Back: No CVA Tenderness Neurological/Psych: Oriented x3, Normal Speech ED Course And Treatment - Laboratory Results Result Diagrams: 09/04/18 21:50 09/04/18 21:50 Lab Results: Total Bilirubin 0.3 mg/dL (0.2-1.3) 09/04/18 21:50 AST 44 U/L (17-59) 09/04/18 21:50 ALT 27 U/L (21-72) 09/04/18 21:50 Alkaline Phosphatase 71 U/L (38-126) 09/04/18 21:50 Total Protein 7.5 g/dL (6.3-8.3) 09/04/18 21:50 Albumin 4.3 g/dL (3.5-5.0) 09/04/18 21:50 Globulin 3.2 gm/dL (2.2-3.9) 09/04/18 21:50 Albumin/Globulin Ratio 1.3 (1.0-2.1) 09/04/18 21:50 Lipase 121 U/L (23-300) 09/04/18 21:50 Urine Color Yellow (YELLOW) 09/04/18 21:50 Urine Clarity Clear (Clear) 09/04/18 21:50 Urine pH 6.0 (5.0-8.0) 09/04/18 21:50 Ur Specific [place] 1.010 (1.003-1.030) 09/04/18 21:50 Urine Protein Negative mg/dL (NEGATIVE) 09/04/18 21:50 Urine Glucose (UA) Normal mg/dL (Normal) 09/04/18 21:50 Urine Ketones Negative mg/dL (NEGATIVE) 09/04/18 21:50 Urine Blood Negative (NEGATIVE) 09/04/18 21:50 Urine Nitrate Negative (NEGATIVE) 09/04/18 21:50 Urine Bilirubin Negative (NEGATIVE) 09/04/18 21:50 Urine Urobilinogen Normal mg/dL (0.2-1.0) 09/04/18 21:50 Ur Leukocyte Esterase Neg [place]/uL (Negative) 09/04/18 21:50 Urine WBC (Auto) < 1 /hpf (0-5) 09/04/18 21:50 Urine RBC (Auto) < 1 /hpf (0-3) 09/04/18 21:50 Lab Interpretation: Abnormal (mild low K+, normal renal fxn) O2 Sat by Pulse Oximetry: 98 Pulse Ox Interpretation: Normal - Radiology CXR: Interpreted by Me CXR Interpretation: Yes: No Acute Disease - Other Rad abd x 2 X-Ray: Interpreted by Me (+FOS) Reevaluation Time: 23:17 Reassessment Condition: Improved Medical Decision Making Medical Decision Making: d/w Surgery benign belly low K+ repleated hydration encouraged Disposition Doctor Will See Patient In The: Office Counseled Patient/Family Regarding: Studies Performed, Diagnosis - Disposition Referrals: Carlos Ramírez MD [Staff Provider] - eJevan Moscoso MD [Medical Doctor] - Disposition: HOME/ ROUTINE Disposition Time: 23:18 Condition: GOOD Additional Instructions: drink laxative now and re-evaluate your abdominal discomfort after 2-3 bowel movements diet and exercise changes outpatient follow-up with Dr. Ramírez (Surgeon) or Dr. Moscoso (PMD) as needed. Instructions: Constipation, Adult (DC) Forms: [employer] (Iranian) - Clinical Impression Clinical Impression: Abdominal colic - Scribe Statement The provider has reviewed the documentation as recorded by the Scribe Armen Penn All medical record entries made by the Scribe were at my direction and personally dictated by me. I have reviewed the chart and agree that the record accurately reflects my personal performance of the history, physical exam, medical decision making, and the department course for this patient. I have also personally directed, reviewed, and agree with the discharge instructions and disposition.
[2018-09-04] MEDS ORDERED: Magnesium Citrate Oral SOL (300 ml) PO ONE (23:20)
[2018-09-04] MEDS ORDERED: Magnesium Citrate Oral SOL (300 ml) ONE (23:33)
--- NOTE | 2018-09-05 10:48 | RAD ---
Date of service: 09/04/2018 PROCEDURE: Radiographs of the chest and abdomen (obstructive series) HISTORY: Abdominal pain COMPARISON: No prior. TECHNIQUE: AP radiograph of the chest, with upright and supine radiographs of the abdomen. 3 views obtained. FINDINGS: CHEST: Lungs: The lungs are well inflated and clear. Cardiovascular: Normal size heart. No pulmonary vascular congestion. No aortic atherosclerotic calcification present Pleura: No pleural fluid. No pneumothorax. Other findings: None. ABDOMEN AND PELVIS: Bowel: There is moderate amount of stool in the colon. Bowel gas pattern is nonspecific. No evidence of mechanical obstruction. Free air: None. Bones: Unremarkable. Other findings: There are multiple phleboliths in the pelvis. IMPRESSION: Constipation. Nonobstructive bowel gas pattern. Clear lungs.
== END 2018-09-04 23:48 | disposition home or self-care (01) ==
LOC: C.ER 20:27
DX: R10.84 Generalized abdominal pain (principal); I10 Essential (primary) hypertension; Z86.711 Personal history of pulmonary embolism
CPT/HCPCS: 74022; 80053; 81001; 83690; 85025; 96374; 99284; J1885; J7030